=== PATIENT | male | born 1940 | race Caucasian/White ===

== ENCOUNTER 2018-08-22 15:37 | Inpatient (IN) | payer OTHER, BC ==
[~2018-08-22] VITALS: Ht 175.3 cm; Wt 68.5 kg
[~2018-08-22 15:37] MED LIST: AMARYL2 MG PO; ASPIR 8181 MG PO; FISH OIL 1,001000 M2 PO; LOPRESSOR100 M1 PO; METFORMIN HCL500 MG PO; METOPROLOL SUC100 MG PO; STOOL SOFTENER100 M1 PO; VITAMINC500 PO
[2018-08-22 15:42] VITALS: BP 161/54
[2018-08-22 16:22] LABS: ABSOLUTE NEUTROPHILS 4.1 thou/uL (1.4-8.2); BASOPHILS 1.1 % (0.0-2.0); EOSINOPHILS 5.5 % (0.0-3.0); HEMATOCRIT 39.7 % (42.0-52.0); LYMPHOCYTES 35.1 % (24.0-44.0); MCH 29.8 pg (26.0-34.0); MCHC 35.2 g/dL (28.0-37.0); MCV 84.6 fL (80.0-100.0); MONOCYTES 7.6 % (1.0-8.0); PLATELET COUNT 219 thou/uL (150-400); POLYS 50.7 % (36.0-66.0); RDW 13.6 % (10.5-14.5)
[2018-08-22 16:32] LABS: ANION GAP 11 mmol/L (7-16); BUN 16 mg/dL (7-18); CALCIUM 9.5 mg/dL (8.5-10.1); CHLORIDE 100 mmol/L (98-107); CO2 25 mmol/L (21-32); CREATININE 1.1 mg/dL (0.7-1.3); GLUCOSE 114 mg/dL (74-106); POTASSIUM 4.1 mmol/L (3.5-5.1); SODIUM 136 mmol/L (136-145)
[2018-08-22 16:36] LABS: APTT 27.3 Seconds (24.5-32.8); PROTIME 10.9 Seconds (9.3-11.4)
[2018-08-22 16:40] LABS: MAGNESIUM 1.7 mg/dL (1.8-2.4); SGOT 14 U/L (15-37); SGPT 23 U/L (30-65); TOTAL PROTEIN 7.6 g/dL (6.4-8.2); TROPONIN-I <0.06 ng/mL (<0.06)
[2018-08-22 16:57] LABS: URINE BILIRUBIN NEGATIVE (Negative); URINE BLOOD NEGATIVE (Negative); URINE CLARITY CLEAR; URINE COLOR YELLOW; URINE GLUCOSE-RANDOM* NEGATIVE (Negative); URINE KETONES NEGATIVE (Negative); URINE LEUKOCYTES-REFLEX NEGATIVE (Negative); URINE NITRITE-REFLEX NEGATIVE (Negative); URINE PROTEIN (DIPSTICK) NEGATIVE (Negative); URINE UROBILINOGEN 0.2 E.U./dl (0.2-1.0)
[2018-08-22 17:13] LABS: AMP/METHAMP Negative (Negative); BARBITURATES Negative (Negative); BENZODIAZEPINES Negative (Negative); COCAINE Negative (Negative); METHADONE Negative (Negative); OPIATES Negative (Negative); PCP Negative (Negative)
[2018-08-22] MEDS ORDERED: FISH OIL 1,001000 M2 PO (17:25)
[2018-08-22] MEDS ORDERED: NIZORAL120 ML TOP (17:28)
[2018-08-22] MEDS ORDERED: OMEPRAZOLE40 MG PO (17:29)
[2018-08-22 19:00] VITALS: BP 143/58
[2018-08-22 19:31] VITALS: BP 147/72
--- NOTE | 2018-08-23 03:10 | NUR ---
ADMISSION AT SHIFT CHANGE FROM THE ER. PT ADMISSION COMPLETED. DURING ASSESSMENT DID NOT NOTICE ANY SIGNS OF STROKE THAT PT PREVIOUSLY HAD WITH SLURRED SPEECH. PT HAS BEEN RESTING IN THE BED ALL SHIFT. POC WITH IVF STARTED PER EMAR. PT IS SCHEDULED FOR MRA TOMORROW AND CONSULTS HAVE BEEN COMPLETED. VSS AND NO COMPLIANTS OF PAIN OR N/V. ONLY WORRY PT VOICED WAS GETTING HIS HOME MEDICATIONS RESTARTED ON 08/23. HOURLY ROUNDING.
[2018-08-23 04:58] VITALS: BP 160/79
[2018-08-23 07:42] VITALS: BP 152/68
--- NOTE | 2018-08-23 09:32 | H ---
[facility] [address] [place] [address] HISTORY AND PHYSICAL Name: WICHO COATS Maggi Room #: 351-P [facility] IN M.R.#: [id number] Admission: 08/22/18 ������������������ Attend Phys: Amirah Cortes Discharge: ������������������ Date of : 36 Report #: [id number] THIS REPORT FOR: //name// CC: Dominick Price DATE OF SERVICE: 08/22/2018 CHIEF COMPLAINT: Weakness. HISTORY OF PRESENT ILLNESS: The patient is an 78-year-old gentleman admitted to the Emergency Room with a possible cerebrovascular event. He was in his usual state of health after what sounds to be in vestibular rehab. This morning when he took a nap and woke up around noon, his said at that time that he was having difficulty speaking. She thought maybe his words were slurred, but more importantly, he was having difficulty expressing his words or expressing his needs. She said he "just could not get the words out." She brought him to the office to be seen by Dr. Price, but he was too weak to get out of the car. She said he was slightly confused. He was brought to the Emergency Room and evaluated and now admitted. He does have a history of some kind of precancerous esophageal mass that [facility] has been managing through GI. He apparently has had multiple EGDs and about 10 days ago underwent a radiofrequency ablation procedure. She said he seemed to tolerate that without incident. PAST MEDICAL HISTORY: Diabetes type 2, hypertension, esophageal mass. There is a history of transient amnesia several years ago, details are unclear. PAST SURGICAL HISTORY: None. FAMILY HISTORY: Unknown. SOCIAL HISTORY: , lives with his . Denies chronic alcohol or tobacco use. ALLERGIES: None. MEDICATIONS: Metformin, Amaryl, vitamin C, aspirin, Colace, metoprolol 100 mg, omeprazole. REVIEW OF SYSTEMS: Denies headache, chest pain, shortness of breath, abdominal pain, nausea, vomiting, diarrhea, constipation, dysuria, syncope. OBJECTIVE: VITAL SIGNS: Temperature 36.7, pulse 57, respirations 18, blood pressure 147/72, O2 sat 94% on room air. [facility] [address] [place] [address] HISTORY AND PHYSICAL Name: WICHO COATS Room #: 351-P [facility] IN .R.#: [id number] Admission: 08/22/18 ������������������ Attend Phys: Amirah Cortes Discharge: ������������������ Date of : 38 Report #: [id number] GENERAL: He is awake and alert, in no distress. HEAD AND NECK: Unremarkable. NEUROLOGIC: Cranial nerves intact and foot are intact and he has fluent speech. LUNGS: Clear. HEART: Regular. ABDOMEN: Soft, normoactive bowel sounds. No rebound or guarding. EXTREMITIES: No cyanosis, clubbing or edema. NEUROLOGIC: Global strength 4/5 and equal bilaterally throughout. Urinalysis: UDS was negative. LABORATORY DATA: CBC normal. Chemistry normal. Magnesium was a little low. Troponin negative. CT of the head negative. Chest x-ray negative. ASSESSMENT: 1. Transient ischemic attack. 2. Hypertension. 3. History of esophageal precancerous mass. PLAN: MRI with MRA has been consulted and the Neurology team will hold some of his home medications for now with slow IV fluids overnight. ��������������������������������������������� <ELECTRONICALLY SIGNED> ���������������������������������������� By: Donell Hobbs MD ��������������������������������������������� 08/23/18931 30 52 Donell Hobbs MD /nt
--- NOTE | 2018-08-23 09:47 | 2DMMODE ---
[facility] [place] [address] 2 D/M-MODE ECHOCARDIOGRAM Name: WICHO COATS Room #: 351-P [facility] IN ..#: [id number] ������������� Admission: 08/22/18 ������������� Attend Phys: Dominick Baum Discharge: ��� ������������� ��� Date of : 36 Date of Service: 08/23/18 0946 �� Report #: [id number] �������� ��������������������������������������������[id number] THIS REPORT FOR: //name// APPROVED REPORT Study performed: 08/23/2018 08:08:10 EXAM: Comprehensive 2D, Doppler, and color-flow Echocardiogram Patient Location: Echo lab Room #: [facility] Status: routine BSA: 1.83 HR: 55 bpm BP: 160/79 mmHg Rhythm: NSR Other Information Study Quality: Fair Technically limited study due to poor echo windows.. Indications TIA, HTN. Echo Enhancing Agent Indication: Rule out Shunt Agent(s) / Amount(s) Used: Agitated Saline 6 cc 2D Dimensions RVDd: 35.54 mm IVSd: 10.28 (7-11mm) LVOT Diam: 20.47 (18-24mm) LVDd: 45.40 mm PWd: 9.64 (7-11mm) LVDs: 33.97 (25-40mm) Aortic Root: 36.18 mm Volumes Left Atrial Volume (Systole) Single Plane 4CH: 33.98 mL Single Plane 2CH: 42.74 mL LA ESV Index: 24.00 mL/m2 Aortic Valve AoV [place].: 0.93 m/s AO Peak Gr.: 3.46 mmHg LVOT Max P.54 mmHg AO Mean Gr.: 2.48 mmHg [facility] [address] [place] [address] 2 D/M-MODE ECHOCARDIOGRAM Name: WICHO COATS Room #: 351-P [facility] IN ..#: [id number] ������������� Admission: 08/22/18 ������������� Attend Phys: Dominick Baum Discharge: ��� ������������� ��� Date of : 36 Date of Service: 08/23/18 0946 �� Report #: [id number] �������� ��������������������������������������������[id number] AO V2 Mean: 0.78 m/s LVOT Max V: 0.80 m/s AO V2 VTI: 153.40 cm CARLITO Vmax: 2.82 cm2 Mitral Valve E/A Ratio: 0.8 MV Decel. Time: 365.88 ms MV E Max Lake.: 0.54 m/s MV A Lake.: 0.65 m/s MV PHT: 106.10 ms IVRT: 73.82 ms Tricuspid Valve TR [place].: 2.64 m/s RAP Estimate: 5.00 mmHg TR Peak Gr.: 27.85 mmHg PA Pressure: 33.00 mmHg Left Ventricle The left ventricle is normal size. There is normal LV segmental wall motion. There is normal left ventricular wall thickness. Left ventricular systolic function is normal. LVEF is 55%. Mild diastolic dysfunction is present (impaired relaxation pattern). Right Ventricle The right ventricle is normal size. The right ventricular systolic function is normal. Atria The left atrium size is normal. No shunting noted with contrast bubble injection. The right atrium size is normal. Aortic Valve The aortic valve is not well visualized. Trace aortic regurgitation. There is no aortic valvular stenosis. Mitral Valve The mitral valve is normal in structure. Mild mitral regurgitation. Tricuspid Valve The tricuspid valve is normal in structure. Mild tricuspid regurgitation. Pulmonic Valve Pulmonic valve is not well visualized. [facility] [place] [address] 2 D/M-MODE ECHOCARDIOGRAM Name: COATSWICHO Maggi Room #: 351-P [facility] IN .R.#: [id number] ������������� Admission: 08/22/18 ������������� Attend Phys: Dominick Baum Discharge: ��� ������������� ��� Date of : 36 Date of Service: 08/23/18 0946 �� Report #: [id number] �������� ��������������������������������������������[id number] Great Vessels The aortic root is normal in size. Ascending aorta is not well visualized. IVC is normal in size and collapses >50% with inspiration. Pericardium There is no pericardial effusion. <Conclusion> The left ventricle is normal size. LVEF is 55%. The aortic valve is not well visualized. Trace aortic regurgitation. The mitral valve is normal in structure. Mild mitral regurgitation. The tricuspid valve is normal in structure. Mild tricuspid regurgitation. Pulmonic valve is not well visualized. The aortic root is normal in size. Ascending aorta is not well visualized. There is no pericardial effusion. No shunting noted with contrast bubble injection. ��������������������������������������������� <ELECTRONICALLY SIGNED> ���������������������������������������� By: Grant Scherer MD ��������������������������������������������� 08/23/18945 5 5 Grant Scherer MD /INF
[2018-08-23 11:17] VITALS: BP 155/73
--- NOTE | 2018-08-23 12:35 | NUR ---
Assumed care of patient at 0700. Vitals have been stable. Patient alert and oriented x4. Speech appears clear, patient has some mild weakness, but is overall weak. Up with SBA and gait belt. Fall precautions in place. Working with therapies today. Completed MRI / MRA and Echo today. MRI results appear negative; no acute abnormality. Patient still to be seen by neuro to be evaluated. at bedside. Patient denies pain, SOB, nausea. No other complaints at this time. Progressing towards POC. Will continue to monitor.
[2018-08-23 16:06] VITALS: BP 130/65
--- NOTE | 2018-08-23 16:40 | EKG ---
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: ALEX : 1940 Requested By: Christopher Velazquez Order Number: [id number] MD: Ramón Coffman Measurements Intervals [place] Rate: 65 P: 47 ID: [id number] QRS: 44 QRSD: 92 T: 65 QT: 387 QTc: 403 Interpretive Statements Sinus rhythm No significant abnormality Compared to ECG 07/09/2015 19:08:27 No significant changes Electronically Signed On 08-23-2018 16:40:12 CDT by Ramón Coffman [email or web address] ��������������������������������������������� <ELECTRONICALLY SIGNED> ���������������������������������������� By: Ramón Coffman MD, [facility] ��������������������������������������������� 08/23/18 1640 1611 1611 Ramón Coffman MD, FACC /EPI
[2018-08-23 19:15] VITALS: BP 145/68
--- NOTE | 2018-08-24 04:15 | NUR ---
ASSUMED CARE OF PATIENT AT 1845. PATIENT IS ALERT AND ORIENTED X4 BUT FORGETFUL AT TIMES, WITH GLOBAL AMNESIA. PATIENT IS STAND BY ASSIST WITH A GAIT BELT, BUT DID NOT GET UP ON THIS SHIFT, USED URINAL. PATIENT IS A HIGH FALL RISK DUE TO ADMITTING DIAGNOSIS OF POSSIBLE TIA AND WEAKNESS. PATIENT REQUIRED SOME FOLLOW UP TEACHING ON NEW MEDICATION OF LEVODOPA/CARBIDOPA. PATIENT HAD NO REPORTS OF PAIN, NAUSEA, OR VOMITING ON THIS SHIFT. HE IS CALM AND COOPERATIVE WITH CARE.
[2018-08-24 04:45] VITALS: BP 148/70
[2018-08-24 07:35] VITALS: BP 130/67
--- NOTE | 2018-08-24 08:26 | NUR ---
ASSESSMENT: CM REVIEWED CHART AND MET WITH PATIENT AND HIS AT THE BESIDE. PT WAS ADMITTED DUE TO POSSIBLE TIA. PT REPORTS LIVING IN A HOUSE WITH HIS . IF PATIENT ENTERS THE HOME THROUGH THE FRONT DOOR HE DOES NOT HAVE ANY STEPS. PT NORMALLY AMBULATES INDEPENDENTLY BUT REPORTS THEY DO HAVE A CANE AT HOME. PT DENIES HAVING A GRAB BAR OR SHOWER CHAIR AND HAS BEEN INDEPENDENT WITH ADLS. CM DISCUSSED ROLE. PT DENIES HAVING HH IN THE PAST OR BEING TO SNF. CM DISCUSSED PT/OT EVALS AND RECOMMENDATION FOR HH VS OUTPATIENT THERAPY. PT STATING HE PREDERS TO DO OUTPATIENT THERAPY STATING HE DOES NOT WANT HH. CM WILL CONTINUE TO FOLLOW TO ASSIST NEEDED.
--- NOTE | 2018-08-24 11:33 | NUR ---
Assumed care of patient at 0700. Vitals have been stable. Patient is alert and oriented x3-4, forgetful at times. NIH and neuro assessments as charted. Patient with no complaints of pain, SOB, nausea. States feels pretty good this morning. Up with SBA, GB. Fall precautions in place. at bedside. Dr. Johnson currently at bedside. Awaiting rounds from Dr. Hobbs to see if stable enough to discharge home. Progressing towards POC. Will continue to monitor.
[2018-08-24] MEDS ORDERED: CARBIDOPA-LEVO1 EA11 PO (12:16)
[2018-08-24] MEDS ORDERED: ATORVASTATIN CA10 MG PO (12:16)
[2018-08-24 12:32] VITALS: BP 130/67
--- NOTE | 2018-08-24 13:21 | NUR ---
ON-GOING ASSESSMENT: CM REVIEWED CHART AND MET WITH PATIENT AND HIS AT TH BEDSIDE. PT IS TO LEAVE TODAY AND HAS ORDERS FOR OUTPATIENT THERAPY. CM SPOKE WITH PT AND AND THEY PREFER TO COME TO [facility]. CM CONTACTED [facility] [phone] TO GIVE THEM A HEARDS UP AND FAXED THE SCRIPT AND A FACE SHEET. THEY HAVE OPENINGS TOMORROW BUT STATES THEY CANNOT MAKE TOMORROW SO CM PROVIDED WITH THE CONTACT NUMBER FOR THEM TO SCHEDULE. CASE CLOSED.
--- NOTE | 2018-08-25 10:16 | D ---
[facility] [address] [place] [address] DISCHARGE SUMMARY Name: WICHO COATS Room #: 351-P [facility] IN M.R.#: [id number] Admission: 08/22/18 ������������������ Attend Phys: Amirah Cortes Discharge: 08/24/18 ������������������ Date of : 38 Report #: [id number] THIS REPORT FOR: //name// CC: Dominick Price DATE OF SERVICE: 08/24/2018 FINAL DIAGNOSES: 1. Transient ischemic attack. 2. Parkinsonism. 3. Hypertension. HOSPITAL COURSE: The patient was admitted with stroke-like symptoms. CT and MRI were negative. His neurologic symptoms resolved completely. He worked with physical therapy and had no other medical complications. Dr. Johnson saw him and considered a diagnosis of early parkinsonism based on some symptoms and features that he assessed. Low dose Sinemet was started t.i.d. PHYSICAL EXAMINATION: GENERAL: On the day of discharge, he was awake and alert. VITAL SIGNS: Stable. LUNGS: Clear. HEART: Regular. ABDOMEN: Soft, normoactive bowel sounds. EXTREMITIES: Showed no edema. DISPOSITION: He is discharged to home with diet and activity as tolerated. He will have outpatient PT. Follow up with Dr. Price in 2 weeks. Resume all home medications plus aspirin 81 mg, Lipitor 10 mg, Sinemet 10 mg t.i.d. ��������������������������������������������� <ELECTRONICALLY SIGNED> ���������������������������������������� By: Donell Hobbs MD ��������������������������������������������� 08/25/18 1016 1252 2047 MD no Trevizo
== END 2018-08-24 13:34 | disposition home or self-care (01) | DRG 69 ==
LOC: ER 15:37 → EROBS 16:57 → 3W 16:57 → ENTRNSPT 08-24 13:21 → EDTRNSPTSTS 08-24 13:24 → 3W 08-24 13:34
PROVIDERS: Emergency Medicine; ADMIT Internal Medicine
DX: G45.9 Transient cerebral ischemic attack, unspecified (principal); E11.9 Type 2 diabetes mellitus without complications; I10 Essential (primary) hypertension; G20 Parkinson's disease; Z79.899 Other long term (current) drug therapy; Z79.84 Long term (current) use of oral hypoglycemic drugs; Z79.82 Long term (current) use of aspirin
CPT/HCPCS: 10879

== ENCOUNTER 2019-06-01 17:06 | Inpatient (IN) | payer OTHER, BC ==
[~2019-06-01] VITALS: Ht 172.7 cm; Wt 70.8 kg
[2019-06-01] VITALS (16 sets, daily range): BP systolic 154–188; BP diastolic 63–95
--- NOTE | ~2019-06-01 | HC ---
[facility] [address] [place] [address] CONSULTATION Name: PAULYWICHO Maggi Room #: 244-P [facility] IN M.R.#: [id number] Admission: 06/01/19 Attend Phys: Amirah Cortes Discharge: Date of : 38 Report #: [id number] THIS REPORT FOR: //name// CC: Dominick Price HISTORY OF PRESENT ILLNESS: The patient is an 79-year-old white male who was admitted with speech difficulties, confusion, noted to occur approximately one hour prior to admission. He was noted to have expressive aphasia with right homonymous hemianopsia without focal weakness. He was also noted to have moderate apraxia. CT of the head was negative. He was given TPA. He has been on bed rest. MRI is pending. He is in the intensive care unit with Neurology involved. We are seeing him in rehabilitation medicine consultation. PAST MEDICAL HISTORY: Includes hypertension, diabetes mellitus type 2. He has a history of a prior esophageal mass. The noted that he has had some prior problems with decreased functional mobility with some overall generalized weakness over the past several months. Apparently things are underway for him to get some outpatient therapy when he came in for this stroke workup. MEDICATIONS: Please see the full medication listing. SOCIAL HISTORY: Lives with . Single story house. No assistive device, although the notes that she would help him out of the chair and he also would tend to walk arm in arm with the . He did not utilize a gait aid, although she tried an old walker, but it sounds like he was not able or did not know how to use it. REVIEW OF SYSTEMS: No current complaints of chest pain, shortness of breath or abdominal discomfort. PHYSICAL EXAMINATION: GENERAL: An 79-year-old white male in no obvious distress. He was alert. He was seen in the intensive care unit. VITAL SIGNS: Temperature 97.9, pulse 57, respirations 17, blood pressure 142/64. NEUROLOGIC: There is a definite delay in his responses. He can follow basic 1-step commands. He knew the date of the month, but was unable to name the year. He knew what hospital he was at, was able to express basic sentence structure. Facies appeared symmetric. He might have decreased right visual field, although it was somewhat difficult to definitively say this. EXTREMITIES: He has functional range of motion of both upper and lower extremities. Strength is probably grade 4-/5. DTRs are trace to 1. He has been unable to get up for functional mobility as he has had the TPA and there is not to be any therapy for 24 hours afterwards. ASSESSMENT: The patient is an 79-year-old male with the following problem list: 1. Stroke workup with CVA/TIA status post TPA. [address] [address] CONSULTATION Name: WICHO COATS Room #: 244-P [facility] IN M.R.#: [id number] Admission: 06/01/19 Attend Phys: Amirah Cortes Discharge: Date of : 38 Report #: [id number] 2. Expressive aphasia with some right hemianopsia without obvious weakness. 3. Moderate apraxia. 4. Premorbid functional mobility deficits. 5. Diabetes mellitus type 2. 6. Hypertension. 7. History of an esophageal mass. PLAN: Therapy evaluations will be underway within the protocol post-TPA. We will be glad to follow along with you regarding his rehab therapy needs. By: 1248 0222 Donell Harmon MD /JULIANNA
[~2019-06-01 17:06] MED LIST changes: +ATORVASTATIN CA10 MG PO; +CARBIDOPA-LEVO1 EA11 PO; +NIZORAL120 ML TOP; +OMEPRAZOLE40 MG PO
--- NOTE | 2019-06-01 17:13 | NUR ---
DR. ENRIQUEZ EXAMINING PT. AT THIS TIME
[2019-06-01 17:32] LABS: HEMATOCRIT 40.9 % (42.0-52.0); HEMOGLOBIN 13.8 gm/dL (14.0-18.0); MCH 29.7 pg (26.0-34.0); MCHC 33.8 g/dL (28.0-37.0); MCV 87.8 fL (80.0-100.0); PLATELET COUNT 196 thou/uL (150-400); RBC 4.66 mil/uL (4.50-6.00); RDW 13.6 % (10.5-14.5); WBC 8.2 thou/uL (4.0-11.0)
[2019-06-01 17:39] LABS: ANION GAP 7 mmol/L (7-16); BUN 15 mg/dL (7-18); CALCIUM 9.8 mg/dL (8.5-10.1); CHLORIDE 100 mmol/L (98-107); CO2 32 mmol/L (21-32); CREATININE 1.1 mg/dL (0.7-1.3); GLUCOSE 163 mg/dL (74-106); POTASSIUM 4.3 mmol/L (3.5-5.1); SODIUM 139 mmol/L (136-145)
[2019-06-01 17:46] LABS: PROTIME 10.6 Seconds (9.3-11.4)
[2019-06-01 17:49] LABS: ABSOLUTE NEUTROPHILS 5.3 thou/uL (1.4-8.2); ALBUMIN 3.9 g/dL (3.4-5.0); SGOT 11 U/L (15-37); SGPT 24 U/L (30-65); TOTAL BILIRUBIN 0.8 mg/dL (<0.1-1.0); TROPONIN-I <0.06 ng/mL (<0.06)
[2019-06-01 17:50] LABS: PLATELET ESTIMATE NORMAL
[2019-06-02] VITALS (49 sets, daily range): BP systolic 115–178; BP diastolic 37–121
--- NOTE | 2019-06-02 05:15 | NUR ---
Patient arrived to the unit from the ED at 1999. Patient is AAOx3 and on room air. Stroke protocol implemented. Patient has a NIHSS of 1. Patient noted to have nonblanchable redness on the sacral/coccyx area. No other wounds were noted. Dr. Sam Price notified of patient's arrival to the unit. Received some orders but MD stated that he will be fine until he sees him in the morning. Patient remains with a NIHSS of 1. Patient started on Cardene for BP management. No acute events occurred during this shift. Patient is progressing towards goal.
[2019-06-02 06:47] LABS: ALBUMIN 3.8 g/dL (3.4-5.0); ANION GAP 7 mmol/L (7-16); BUN 12 mg/dL (7-18); CALCIUM 9.1 mg/dL (8.5-10.1); CHLORIDE 102 mmol/L (98-107); CHOLESTEROL 226 mg/dL (<200); CO2 31 mmol/L (21-32); CREATININE 0.9 mg/dL (0.7-1.3); GLUCOSE 156 mg/dL (74-106); HDL CHOLESTEROL 30 mg/dL (>40); LDL CHOLESTEROL 148 mg/dL (<100); SGOT 12 U/L (15-37); SGPT 22 U/L (30-65); SODIUM 140 mmol/L (136-145); TC:HDL 7.5 Ratio (Not establshd); TOTAL BILIRUBIN 1.3 mg/dL (<0.1-1.0); TOTAL PROTEIN 7.8 g/dL (6.4-8.2); TRIGLYCERIDE 240 mg/dL (<150); VLDL 48 mg/dL (<40)
--- NOTE | 2019-06-02 09:54 | NUR ---
SEE NIHSS FOR DETAILS. SEE ASSESSMENT FOR DETAILS. DR. FORD PRESENT THIS AM, UPDATED ON NIHSS RESULTS. PRESENT. BOTH PT AND UPDATED ON ALL CARES.
--- NOTE | 2019-06-02 13:46 | EKG ---
[address] [place] [address] ELECTROCARDIOGRAM REPORT Name: WICHO COATS Room #: 244-P ADM IN M.R.#: [id number] Admission: 06/01/19 Attend Phys: Amirah Cortes Discharge: Date of : 38 Report #: [id number] THIS REPORT FOR: //name// [facility] ED Test Date: 2019-06-01 Test Time: 18:08:55 Pat Name: WICHO COATS Department: Room: Gender: Hris Coordinator: [facility] 1940 Requested By: Jasper Carranza Order Number: [id number] MD: Rubén Nava Measurements Intervals [place] Rate: 63 P: 68 VA: 58 QRS: 53 QRSD: 82 T: 73 QT: 409 QTc: 419 Interpretive Statements Sinus rhythm Short VA interval Compared to ECG 08/22/2018 16:11:47 Short VA interval now present T-wave abnormality now present Electronically Signed On 06-02-2019 13:45:41 [employer] by Rubén Nava [email or web address] <ELECTRONICALLY SIGNED> By: Rubén Nava MD 06/02/19 1345 07 Rubén Nava MD /SHAHBAZ
--- NOTE | 2019-06-02 14:22 | 2DMMODE ---
[facility] [place] [address] 2 D/M-MODE ECHOCARDIOGRAM Name: WICHO COATS Room #: 244-P [facility] IN [facility]#: [id number] Admission: 06/01/19 Attend Phys: Dominick Baum Discharge: Date of : 38 Report #: [id number] THIS REPORT FOR: //name// APPROVED REPORT Study performed: 06/02/2019 13:21:39 EXAM: Comprehensive 2D, Doppler, and color-flow Echocardiogram Patient Location: ICU Room #: [facility] Status: routine BSA: 1.80 HR: 57 bpm BP: 142/58 mmHg Rhythm: Bradycardia Other Information Study Quality: Technically Limited Indications CVA/TIA Diabetes Hypertension/HDD Echo Enhancing Agent Indication: Rule out Shunt Agent(s) / Amount(s) Used: Agitated Saline 7 cc 2D Dimensions IVC: 14.00 mm Volumes Left Atrial Volume (Systole) Single Plane 4CH: 52.06 mL Single Plane 2CH: 37.50 mL LA ESV Index: 28.00 mL/m2 Aortic Valve AoV [place].: 0.99 m/s AO Peak Gr.: 3.91 mmHg LVOT Max P.26 mmHg LVOT Max V: 0.75 m/s Mitral Valve E/A Ratio: 0.7 MV Decel. Time: 298.16 ms MV E Max Lake.: 0.65 m/s [facility] [address] [place] [place] [address] 2 D/M-MODE ECHOCARDIOGRAM Name: WICHO COATS Room #: 244-P [facility] IN [facility].#: [id number] Admission: 06/01/19 Attend Phys: Dominick Baum Discharge: Date of : 38 Report #: [id number] MV A Lake.: 0.88 m/s MV PHT: 86.47 ms IVRT: 119.95 ms Pulmonary Vein P Vein S: 0.46 m/s P Vein A: 0.25 m/s P Vein D: 0.27 m/s P Vein A Dur.: 87.7 msec P Vein S/D Ratio: 1.70 Left Ventricle The left ventricle is normal size. There is normal LV segmental wall motion. There is normal left ventricular wall thickness. The left ventricular systolic function is normal. The left ventricular ejection fraction is within the normal range. LVEF is 55-60%. Grade I - abnormal relaxation pattern. Right Ventricle The right ventricle is normal size. The right ventricular systolic function is normal. Atria The left atrium size is normal. Interatrial septum is intact without evidence of ASD or PFO. The right atrium size is normal. Aortic Valve The aortic valve is normal in structure. No aortic regurgitation is present. There is no aortic valvular stenosis. Mitral Valve The mitral valve is normal in structure. Trace mitral regurgitation. No evidence of mitral valve stenosis. Tricuspid Valve The tricuspid valve is normal in structure. There is no tricuspid valve regurgitation noted. Pulmonic Valve The pulmonary valve is normal in structure. There is no pulmonic valvular regurgitation. Great Vessels The aortic root is normal in size. IVC is normal in size and collapses >50% with inspiration. Pericardium No pericardial effusion. [facility] [address] [place] [address] 2 D/M-MODE ECHOCARDIOGRAM Name: COATSWICHO Maggi Room #: 244-P [facility] IN [facility].#: [id number] Admission: 06/01/19 Attend Phys: Dominick Baum Discharge: Date of : 38 Report #: [id number] <Conclusion> The left ventricle is normal size. LVEF is 55-60%. Interatrial septum is intact without evidence of ASD or PFO. The aortic valve is normal in structure. The mitral valve is normal in structure. Trace mitral regurgitation. The tricuspid valve is normal in structure. The pulmonary valve is normal in structure. No pericardial effusion. <ELECTRONICALLY SIGNED> By: Grant Scherer MD 06/02/19 142 20 142 Grant Scherer MD /INF
--- NOTE | 2019-06-02 16:01 | NUR ---
transferred to mri per wheelchair with credit controller for mri of head without contrast. accompanied by mri staff and rn.
[2019-06-03] VITALS (39 sets, daily range): BP systolic 125–173; BP diastolic 53–82
[2019-06-03 00:06] LABS: GLYCOHEMOGLOBIN (HGB A1C) 6.8 % (4.8-5.6)
--- NOTE | 2019-06-03 03:30 | NUR ---
NOTED PT TO BE VERY DROUSY AND MORE APHASIC. UNABLE TO ANSWER QUESTIONS CORRECTLY. DR OFRD NOTIFEID AND LEFT ORDERS FOR STAT CT OF HEAD
--- NOTE | 2019-06-03 04:00 | NUR ---
0400 PT PERKED UP ON THE WAY TO CT AND NOW IS ORIENTED. NO DRIFT NO FACIAL DROOP. HENDRICKSON TO COMMAND. WILL CONT TO MONITOR.
--- NOTE | 2019-06-03 05:15 | NUR ---
DR OFRD HERE TO SEE. CT OF HEAD NEGATIVE STAT DOSE OF PLAVIX [address] LILIANA FORD HERE TO SEE PT. AT BEDSIDE. CT OF HEAD NEGATIVE VOIDED 200 CC LAILA URINE. NIH OF 2 WILL CONT TO MONITOR
--- NOTE | 2019-06-03 08:10 | H ---
[facility] [address] [place] [address] HISTORY AND PHYSICAL Name: WICHO COATS Room #: 244-P [facility] IN ..#: [id number] Admission: 06/01/19 Attend Phys: Amirah Cortes Discharge: Date of : 36 Report #: [id number] THIS REPORT FOR: //name// CC: Dominick Price DATE OF SERVICE: 06/01/2019 CHIEF COMPLAINT: Trouble speaking. HISTORY OF PRESENT ILLNESS: The patient is an 79-year-old gentleman who was admitted through the Emergency Room with difficulty speaking. His reports that she noted that he was confused and was having difficulty expressing his words. She said his speech was not totally clear and he was not able to name things properly. She said this was a sudden change. His blood sugar was stable at home. She brought him to the Emergency Room where he was treated with TPA for clinical diagnosis of a stroke and/or TIA. MEDICAL HISTORY: Diabetes type 2, hypertension, remote history of esophageal cancer, dyslipidemia. PAST SURGICAL HISTORY: Unknown. FAMILY HISTORY: Noncontributory. SOCIAL HISTORY: He is , lives with his at home. No chronic alcohol or tobacco use, but some smoking in the past. ALLERGIES: None. MEDICATIONS: Lipitor, Sinemet, Glucophage, Amaryl, aspirin, metoprolol, omeprazole. REVIEW OF SYSTEMS: He denies headache, chest pain, shortness of breath, abdominal pain, nausea, vomiting, diarrhea, constipation, dysuria, syncope. OBJECTIVE: VITAL SIGNS: Temperature 36.7, pulse 56, respirations 17, blood pressure 143/66, O2 sat 93-98% on room air. GENERAL: He is awake and alert, in no distress. HEAD AND NECK: Unremarkable. He has facial symmetry. LUNGS: Clear. HEART: Regular. ABDOMEN: Soft, normoactive bowel sounds. EXTREMITIES: No edema. NEUROLOGIC: His words were slow, but he was able to communicate clearly. He recognizes my name from the office. He recognized his and conversed with [facility] [place] [address] HISTORY AND PHYSICAL Name: WICHO COATS Maggi Room #: [address] [place] [address] [place] .R.#: [id number] Admission: 06/01/19 Attend Phys: Amirah Cortes Discharge: Date of : 38 Report #: [id number] her clearly. She felt that his symptoms were much improved. He moves all extremities, global strength about 3-4/5 throughout. LABORATORY DATA: Reviewed. Chemistry and CBC are fairly unremarkable. Lipids are noted to be elevated. Initial CT head through ER was unremarkable. ASSESSMENT: 1. Cerebrovascular accident. 2. Hypertension. 3. Diabetes type 2. 4. Acute aphasia. PLAN: Repeat an MRI today. Resume other home medications. Full therapies to be initiated along with the rehabilitation service. <ELECTRONICALLY SIGNED> By: Donell Hobbs MD 06/03/19 0810 1258 1335 Donell Hobbs MD /soren
--- NOTE | 2019-06-03 10:27 | NUR ---
Assumed care at 0700. PT was asleep in bed but woke up easily. PT appears slow in processing commands and is oriented to self only. At 0920 PT began having runs of SVT. PT was asymptomatic, BP is stable. PT was instructed to bear down and cough which helped decrease his heart rate. PT was noted to have runs of SVT every couple of minutes with each episode lasting longer than the previous. Dr. Hobbs was paged several times and nurse was able to reach him at 1017. Nurse notified of Anjel that a new EKG had been obtained and a BMP with mag was also ordered. He verbalized understanding and ordered to restart PT's home medication (Metoprolol succinate 100mg QD) with first dose ordered for now and to consult cardiology. Dr. Scherer's answering service was contacted to notify him of the consult. Nurse will continue to monitor.
[2019-06-03 12:01] LABS: CALCIUM 9.2 mg/dL (8.5-10.1); CREATININE 1.1 mg/dL (0.7-1.3); MAGNESIUM 1.5 mg/dL (1.8-2.4)
[2019-06-04] VITALS (20 sets, daily range): BP systolic 113–190; BP diastolic 47–83
--- NOTE | 2019-06-04 05:07 | NUR ---
With assessment,it is noted that when pt is asleep, his respirations are so shallow, that they are difficult for the monitor to read. The lead was adjusted, and a visual assessment does show (up to 5 second) periods of apnea. The reports that she has noticed that he does that home as well. O2 was placed when his sats dropped, and he is currently at 100 % on 2 L/m. His lungs are clear, no cough noted. SB on the monitor with rates dropping to 47 bpm, BP was reading high, but more likely due to cuff placement and movement, and is currently 134/59. Pt has good understanding of education, questions, etc but still has some trouble finding his words, when he is prompted, he agrees that was what he was trying to say. NIH scale is usually between 2-3, his physical assessment is WNL, with aphasia still posing the most difficult issue at this time. The bed is in the low/locked position, the call light is within reach and the bed alarm is set, as he forgets his limitations.
[2019-06-04 05:14] LABS: CALCIUM 9.3 mg/dL (8.5-10.1); CREATININE 0.9 mg/dL (0.7-1.3); POTASSIUM 3.8 mmol/L (3.5-5.1)
--- NOTE | 2019-06-04 10:04 | NUR ---
Assumed care at 0700. PT was alert and oriented to person and place this morning. PT was also able to communicate better understanding of what brought him into the hospital. NIH was noted to be 2 this morning for expressive aphasia and disorientation to time. PT is tolerating food and medication well. Metoprolol has not been given this morning due to bradycardia. Nurse will follow up with physician to get clarification of order. PT is currently sitting up in the recliner. is at bedside. Fall precautions are in place. Call light is within reach. Nurse will continue to monitor.
--- NOTE | 2019-06-04 17:45 | NUR ---
PT has shown improvements with his cognitive status. PT was able to correctly identify where he was and knew more about the events leading up to this hospitalization. His short term memory appears improved. PT's stated "he seems so much clearer today." PT ambulated to the recliner and to the toilet, tolerating activity well. Fall precautions were in place and gait belt was utilized. PT is currently eating dinner in his recliner and appears to be tolerating it well. Call light is within reach. Nurse will continue to monitor.
[2019-06-05 04:33] VITALS: BP 146/62
--- NOTE | 2019-06-05 06:44 | NUR ---
Pt has rested well through the night, his only complaint is the BP cuff, so the monitor was set to Q4H, VSS, he remains bradycardic, but rates maintained in the 50's to 70's. His speech/STM has improved, less word-finding noted, he HENDRICKSON's, transfers with standby assist at this time. He is progressing to POC and should be able to be transferred out of ICU today. The bed is in the low/locked position, the call light is within reach and the siderails are up x 4.
[2019-06-05 08:08] VITALS: BP 147/56
[2019-06-05 08:09] VITALS: BP 146/62
--- NOTE | 2019-06-05 08:56 | NUR ---
CM ASSESSMENT: CASE OPENED FOR DC PLANNING. CLINICAL INFO REVIEWED. PT ADMITS WITH STROKE SYMPTOMS AND RECEIVED TPA. LIVES WITH SPOUSE, INDEPENDENT WITH ADLS, HAS CANE AT HOME. THERAPY EVALS INDICATE REHAB NEEDED AND 5N FOLLOWING. WILL DISCUSS TIMELINE FOR MEDICAL READINESS TO TRANSITION TO REHAB.
[2019-06-05] MEDS ORDERED: CLOPIDOGREL75 MG PO (14:04)
[2019-06-05] MEDS ORDERED: LIPITOR40 MG PO (14:04)
[2019-06-05] MEDS ORDERED: METOPROLOL SUCC50 MG PO (14:05)
--- NOTE | 2019-06-05 14:49 | EKG ---
[place] [address] [facility] [place] [address] ELECTROCARDIOGRAM REPORT Name: WICHO COATS Room #: 244-P ADM IN M.R.#: [id number] Admission: 06/01/19 Attend Phys: Amirah Cortes Discharge: Date of : 38 Report #: [id number] THIS REPORT FOR: //name// [facility] Test Date: 2019-06-03 Test Time: 10:10:05 Pat Name: WICHO COATS Department: Room: 244 P Gender: M Trip Rider: MIGUELANGEL : 1940 Requested By: Donell Hobbs Order Number: [id number] MD: Rubén Nava Measurements Intervals [place] Rate: 83 P: 77 DC: 152 QRS: 41 QRSD: 79 T: 77 QT: 375 QTc: 441 Interpretive Statements Sinus rhythm Borderline low voltage, extremity leads Compared to ECG 06/01/2019 18:08:55 Short DC interval no longer present Electronically Signed On 06-05-2019 14:48:21 SHOW JUMPING INSTRUCTOR by Rubén Nava [email or web address] <ELECTRONICALLY SIGNED> By: Rubén Nava MD 06/05/19 1448 1010 1010 Rubén Nava MD /SHAHBAZ
--- NOTE | 2019-06-06 14:00 | D ---
[facility] [address] [place] [address] DISCHARGE SUMMARY Name: WICHO COATS Room #: 244-P [facility] IN ..#: [id number] Admission: 06/01/19 Attend Phys: Amirah Cortes Discharge: 06/05/19 Date of : 38 Report #: [id number] THIS REPORT FOR: //name// CC: Dominick Price DATE OF SERVICE: 06/01/2019 FINAL DIAGNOSES: 1. Transient ischemic attack. 2. Paroxysmal supraventricular tachycardia. 3. Hypertension. 4. Diabetes type 2. 5. Obstructive sleep apnea. HOSPITAL COURSE: The patient was admitted with speech difficulties. He was treated for TIA and received TPA through the Emergency Room. CT nor MRI showed acute stroke; however, his MRI did show some chronic ischemic areas consistent with prior stroke. He had another episode of aphasia during his stay, but followup CT was negative as well. He was hypoxic at night and consideration of clinical diagnosis of obstructive sleep apnea was made. His expressed reports that he has hypersomnia during the day and often snores at night. The plan will be an outpatient sleep study. He had an episode of self-limited PSVT during his stay. Historically, it sounds like this is a chronic diagnosis and his metoprolol was adjusted. Cardiology service saw him and placed a loop recorder for consideration of tachyarrhythmia that could be contributing to his vascular events. He was switched from aspirin to Plavix and his Lipitor was increased based on his lipids. PHYSICAL EXAMINATION: On the day of discharge: GENERAL: He was awake and alert. VITAL SIGNS: Stable vital signs. NEUROLOGIC: His speech was clear. LUNGS: Clear. HEART: Regular. ABDOMEN: Soft, normoactive bowel sounds. EXTREMITIES: No edema. DISPOSITION: He is being transferred to inpatient rehabilitation. He will have oxygen at night. Diabetic diet, activity as tolerated. PT, OT, ST under the care of Dr. Harmon and I will follow his stay there. I prepared his transfer orders and medication list electronically. <ELECTRONICALLY SIGNED> By: Donell Hobbs MD 06/06/19 1400 1409 1429 Donell Hobbs MD /nt
--- NOTE | 2019-06-06 16:35 | LINQ ---
[facility] [address] [place] [address] [employer] PROCEDURE REPORT Name: WICHO COATS Room #: 244-P [facility] [id number] Admission: 06/01/19 Attend Phys: Dominick Baum Discharge: 06/05/19 Date of : 38 Report #: [id number] THIS REPORT FOR: //name// APPROVED REPORT Study performed: 06/05/2019 15:44:29 Patient Status: In-Patient Room #: Event Personnel: Grant Scherer MD Exam: loop recorder insertion Indications: cryptic stroke The patient is a 79 year-old male with a history of 2 episodes of cryptic strokes.. Implanted Devices: [employer]: CONFIRM Rx; Reference #: [id number]; SN: [id number]; Use before: 2020-10-06 Procedure The patient underwent informed consent. We discussed the details of the procedure including the risks, which include, but not limited to bleeding, infection, vascular damage, cardiac perforation, and pneumothorax. Abdomen functional was obtained the patient was prepped and draped in usual sterile manner. The left chest region was then covered with a sterile drape. Local lidocaine was then utilized to instill any utilizing 11 blade a small incision was made. Using both sharp and blunt dissection a small pocket was developed and the device was introduced without complications. The subcutaneous tissue was then closed with 2 simple interrupted sutures and the skin was Dermabond sealed. Steri-Strips 4 x 4 OpSite were then utilized. Patient tolerate her procedure well. Following implantation and completion of the procedure the device was interrogated by the [facility] who was concerned about a battery issue. Determinations that it may been secondary to the device being cold was brought forth and contact with technical services at [facility] ensued. After given again discussions with the technical publications manager it was deemed that device was faulty and needed explantation. The patient was then prepped and draped on the following day in rep and hold. Local anesthetic was instilled and using a 11 blade the incision was reopened. Antibiotic solution was utilized. The device was explanted and a new device with the above 0 numbers were positioned. The saphenous tissue was closed with 2 simple interrupted sutures and the skin was closed with a running subcuticular and [address] [address] [employer] PROCEDURE REPORT Name: PAULYWICHO Maggi Room #: 244-P [facility] [id number] Admission: 06/01/19 Attend Phys: Dominick Baum Discharge: 06/05/19 Date of : 38 Report #: [id number] subsequent Dermabond. Steri-Strips 4 x 4 OpSite were utilized no complications patient tolerated procedure well Conclusion 1. Successful implantation of a [employer] implantable loop recorder Recommendations 1. Routine post implantation protocol <ELECTRONICALLY SIGNED> By: Grant Scherer MD 06/06/19 1634 1634 1634 Grant Scherer MD /INF
== END 2019-06-05 17:32 | disposition short-term general hospital (02) | DRG 41 ==
LOC: ER 17:06 → ICU 19:52 → ER 19:52 → ICU 20:03
PROVIDERS: Emergency Medicine; Internal Medicine Geriatric Medicine; ADMIT Internal Medicine
PROC: 0JH602Z Insertion of Monitoring Device into Chest Subcutaneous Tissue and Fascia, Open Approach (ICD-10-PCS; principal; 2019-06-05)
PROC: 3E03317 Introduction of Other Thrombolytic into Peripheral Vein, Percutaneous Approach (ICD-10-PCS; principal; 2019-06-05)
DX: I63.9 Cerebral infarction, unspecified (principal); I47.1 Supraventricular tachycardia; G81.91 Hemiplegia, unspecified affecting right dominant side; R47.01 Aphasia; E11.9 Type 2 diabetes mellitus without complications; R48.2 Apraxia; I10 Essential (primary) hypertension; E78.00 Pure hypercholesterolemia, unspecified; H53.47 Heteronymous bilateral field defects; G47.33 Obstructive sleep apnea (adult) (pediatric); E78.5 Hyperlipidemia, unspecified; Z79.82 Long term (current) use of aspirin; Z68.23 Body mass index [BMI] 23.0-23.9, adult; Z90.89 Acquired absence of other organs; Z79.84 Long term (current) use of oral hypoglycemic drugs; Z79.899 Other long term (current) drug therapy; Z87.891 Personal history of nicotine dependence
CPT/HCPCS: 10078; 10203

== ENCOUNTER 2019-06-05 15:56 | Inpatient (IN) | payer OTHER, BC ==
[~2019-06-05] VITALS: Ht 172.7 cm; Wt 66.2 kg
[~2019-06-05 15:56] MED LIST changes: +CLOPIDOGREL75 MG PO; +LIPITOR40 MG PO; +METOPROLOL SUCC50 MG PO
--- NOTE | 2019-06-05 16:10 | NUR ---
CHART REVIEW, CM VISITED WITH PT AND AT BEDSIDE. BOTH A & O X 3, PLEASANT. INTRO TO DCP, TRANSITION OF CARE AND TEAM MEETING, TRIFOLD LIST GIVING TO ON WHAT TO EXCEPT FROM ACUTE REHAB AND WHAT TO BRING. PT INDEPENDENT PRIOR TO HOSPITAL. PT HAS LOOP RECORDER ON UPPER LEFT CHEST, STATED GOING TO GET CHANGED TOMORROW, HE CAN SHOWER JUST CANT GET IT WET. HAS CANE. DRIVING, AND MANAGING HIS OWN MEDICATION. WILL CONT FOLLOWING NEEDED FOR DC NEEDS.
[2019-06-05 17:45] VITALS: BP 144/69
[2019-06-05 19:12] VITALS: BP 106/67; BP 130/66
--- NOTE | 2019-06-05 20:18 | NUR ---
PT ARRIVED AT 1745 FROM ICU. PT ADMIT FOR STROKE WORK UP AT ICU FOR CVA/TIA STATUS POST TPA. HAD EXPRESSIVE APHASIA WITH SOME R SIDE WEAKNESS. VITALS REMAIN STABLE ON RA. T 95 SAID THEY HAD HARD TIME TO TAKE HIS TEMP AT ICU. SAT 100% ON RA DURING DAY, BUT NEED 2L OF O2 AT HS. PT DENIES PAIN AT THIS TIME. PT ALERT AND ORIENTED X4. SAID PT IS MORE ALERT AND ORIENTED TODAY. HAD LEFT LOOP RECORDER BUT REMOVED TODAY AND DR. ORR WILL REPLACE ANOTHER ONE IN THE AM PER . WILL GIVE REPORT TO NIGHT NURSE TO CALL BRICK MACHINE OPERATOR TO LET HIM KNOW PT IS IN ROOM 514 NOW. DRESSING C/D/I. NO SKIN ISSUE NOTED. PT UP WITH 1 SBA, GB AND TOLERATED WELL. REASSESSMENT PER CHART. CONT B&B HAD BM THIS AM. PT HAS URGENCY URINATION. PT LIVES HOME WITH . DISCUSSED ABOUT REHAB PROGRAM. PT AND SIGNED FALL EDUCATION CONTRACT AND ADMISSION CONSENTS. OFFERED SUPPORTIVE CARE. WENT OVER ADMISSION LIST WITH . SAID PT WAS ON CARBIDOPA BY NEUROLOGIST, BUT HIS PCP TOOK HIM OFF AND PT HAS BEEN ON IT FOR A YEAR. CALLED AND NOTIFIED PHARMACIST AND IT IS HOLD AT THIS MOMENT.PT ATE 50% DINNER. UP TO BATHROOM WITH A WALKER. AT BEDSIDE.FALL PRECAUTION IN PLACE. CALL LIGHT WITHIN REACH. GAVE REPORT TO NIGHT NURSE TO CONTINUE TO MONITOR AND NOTIFIED DOCTORS FOR CONSULTS.
--- NOTE | 2019-06-06 01:36 | NUR ---
PT ASSESSMENT DONE AND VSS. MEDS GIVEN AND WELL TOLERATED. FALL PRECAUTIONS IN PLACE. SLEEPING WELL. HOURLY ROUNDING. CALL LIGHT IN REACH. WILL CONTINUE TO MONITOR.
[2019-06-06 03:33] LABS: HEMATOCRIT 41.1 % (42.0-52.0); HEMOGLOBIN 13.7 gm/dL (14.0-18.0); MCH 29.2 pg (26.0-34.0); MCHC 33.4 g/dL (28.0-37.0); MCV 87.4 fL (80.0-100.0); RBC 4.71 mil/uL (4.50-6.00); RDW 13.4 % (10.5-14.5); WBC 7.9 thou/uL (4.0-11.0)
[2019-06-06 03:40] LABS: CALCIUM 9.2 mg/dL (8.5-10.1); CREATININE 0.9 mg/dL (0.7-1.3); POTASSIUM 4.2 mmol/L (3.5-5.1)
[2019-06-06 07:45] VITALS: BP 135/70
--- NOTE | 2019-06-06 09:52 | NUR ---
CONSULT [id number] WAS COMPLETED BY THIS PHYSICIAN ALLERGIST IMMUNOLOGIST.
--- NOTE | 2019-06-06 13:42 | NUR ---
team meeting, recommendation: anticipation dc outpt therapy ( pt, st ). no dme. assistance with pills and bills. no driving utile cleared by MD. loop recorder changed today.
--- NOTE | 2019-06-06 14:35 | NUR ---
sales promotion coordinator to see patient again. pt sleeping in recliner and awakens easily. pt's right eye remains closed for more than a minute and then slowly returns to baseline and opens. pt also unable to raise right eyebrow when asked to lift them. no facial droop noted. speech clear with no confusion noted. I will notify patients nurse and continue to follow this patient for progress.
--- NOTE | 2019-06-06 18:47 | NUR ---
ASSUME PT CARE AT 0700. VSS ON RA. ALERT AND ORIENTED X4. SLOW IN RESPONSE BUT APPROPRIATELY. PT UP WITH 1 SBA, GB WITHOUT DEVICE AND TOLERATED WELL. REASSESSMENT PER CHART. CONT B&B. PT HAS URGENCY URINATION. CALL APPROPRIATELY. PT WENT DOWN FOR IMPLANTED LOOP CARDIAC RECORDER THIS AM. DENIES PAIN, SOB. TOOK MEDS WHOLE ONE AT THE TIME. OFFERED SUPPORTIVE CARE. PT HAD SHOWER WITH OT. UP AND PARTICIPATED WITH THERAPY. UP TO DINNING ROOM FOR MEALS. IV REMOVED. FALL PRECAUTION IN PLACE. CALL LIGHT WITHIN REACH. CHECKED FREQUENTLY FOR NEEDS AND SAFETY. WILL GET REPORT TO NIGHT NURSE TO CONTINUE TO MONITOR.
[2019-06-06 19:40] VITALS: BP 168/79
--- NOTE | 2019-06-07 01:27 | NUR ---
PT ALERT AND ORIENTED X 4 WITH EXPRESSIVE APHASIA. SLOW TO RESPOND. LEFT CHEST DRESSING C/D/I. PT DENIES PAIN OR DISCOMFORT. BED ALARM ON FOR SAFETY. PT HAS BEEN IMPULSIVE A FEW TIMES TONIGHT. SETTING OFF BED ALARM TRYING TO GO TO BATHROOM. BED ALARM ON FOR SAFETY. PT CHECKED ON HOURLY ROUNDS. PT EASILY VISIBLE FROM NURSES STATION.
[2019-06-07 10:12] VITALS: BP 122/76
--- NOTE | 2019-06-07 10:13 | NUR ---
PT WAS WORKING WITH THERAPY THIS AM. PT WAS ASSISTED TO BATHROOM VIA X1 STAND-BY. PT GAIT STEADY, NEEDS OBSERVATION WITH AMBULATION. PT WITH SPEECH THERAPY. PT NEEDING MEDS CRUSHED AND DRY SWALLOW AFTER EACH BITE. THIS [employer] INSTRUMENTS INSPECTOR CHECKED WITH PHARMACY TO SEE WHICH MEDS ARE CRUSHABLE. PT TOLERATED CRUSHED MEDS IN APPLESAUCE.
--- NOTE | 2019-06-07 11:30 | NUR ---
ORDERS OBTAINED WITH MEDS THAT CAN BE CRUSHED.
--- NOTE | 2019-06-07 14:19 | NUR ---
PT HAS BEEN RESTING SINCE AFTER LAST THERAPY. PT TOLERATING MECH SOFT DIET. PT DOES HAVE A GARGLE SOUND AFTER EATING OR DRINKING. PT IS TOLERATING CRUSHED MEDS IN APPLESAUCE OR THICKEN LIQUID.
[2019-06-07 19:07] VITALS: BP 127/70
--- NOTE | 2019-06-08 00:55 | NUR ---
PT ALERT AND ORIENTED X 4. IMPULSIVE AT TIMES. PT TOOK HS MEDS CRUSHED IN APPLESAUCE WITHOUT DIFFICULTY. LEFT CHEST DRESSING C/D/I. PT DENIES PAIN OR DISCOMFORT. BED ALARM ON FOR SAFETY. PT APPEARS TO BE SLEEPING ON HOURLY ROUNDS.
[2019-06-08 09:00] VITALS: BP 123/63
[2019-06-08 21:06] VITALS: BP 132/69
--- NOTE | 2019-06-08 21:21 | NUR ---
ASSUMED CARE OF PT AT 0715. PT IS ALERT AND ORIENTED TO PERSON FREQUENTLY CONFUSED AND FORGETFUL. PT DENIES PAIN AND PARTICIPATED IN SCHEDULED THERAPIES. PT MAKES NO ATTEMPTS TO CALL FOR ASSISTANCE AND REFUSES TO USE GAIT BELT AND WALKER. ALARMS IN PLACE AND FALL PRECAUTIONS REINFORCED TO PT. PER ST PT TO HAVE NECTAR THICK LIQUIDS WITH SPOON. NURSING OFFERING FLUIDS FREQUENTLY TO PT. IV PLACED TO RIGHT FOREARM PER ORDERS FROM JORDAN FOFANA NP DUE TO CONCERNS ABOUT DEHYDRATION. IV IS SALINE LOCKED AT THIS TIME. FAMILY AT BEDSIDE THIS AFTERNOON AND EXPRESS CONCERN ABOUT PT NOT BEING ASSISTED WITH TOILETING. FAMILY DENIES THAT PT IS CONFUSED AND DISORIENTED AT TIMES. PT REPORTS TO FAMILY THAT HE HAS CALLED FOR ASSISTANCE, BUT PER STAFF THIS SHIFT AND OVERNIGHT PT DOES NOT USE CALL LIGHT FOR ASSISTANCE, TO WHICH FAMILY IS NOT RECEPTIVE AT THIS TIME. HOURLY ROUNDING COMPLETED AND PT IN ROOM AT NURSES STATION. FAMILY STATES "WHEN HE NEEDS TO GO HE NEEDS TO GO RIGHT AWAY AND HE CANNOT WAIT, SO SOMEONE NEEDS TO BE WITH HIM IMMEDIATLY." INFORMED FAMILY THAT WE WILL MAKE EVERY ATTEMPT TO ASSIST PT WITH MEETING HIS NEEDS. FALL PRECAUTIONS IN PLACE AND NURSING WILL CONTINUE TO MONITOR.
--- NOTE | 2019-06-09 00:49 | NUR ---
PT ASSESSMENT DONE AND VSS. MEDS GIVEN AND WELL TOLERATED. FALL PRECAUTIONS IN PLACE. SLEEPING WELL. CALLED IN EVENING TO CHECK ON PT. HOURLY ROUNDING. CALL LIGHT IN REACH. WILL CONTINUE TO MONITOR.
[2019-06-09 05:19] LABS: CALCIUM 9.1 mg/dL (8.5-10.1); POTASSIUM 3.9 mmol/L (3.5-5.1)
[2019-06-09 10:08] VITALS: BP 119/72
--- NOTE | 2019-06-09 18:36 | NUR ---
ASSUMED CARE AT 0700. PATIENT IS ALERT AND ORIENTED X3. PATIENT HAS RIGHT SIDED WEAKNESS. PATIENT IS UP IN THE CHAIR. OUT TO THE DINING ROOM FOR MEALS. PATIENT HAS SOME EXPRESSIVE APHAGIA. PATIENT CAN BE IMPULSIVE AT TIMES.PATIENT HAS S.L. IN HIS RIGHT F.A. PATIENT IS ON NECTAR THICK LIQUIDS. FF Q 1 HOUR WA PATIENT IS UP WITH ASSIST OF 1 WITH GAIT BELT AND WALKER. FALL AND SAFETY PROTOCOLS IN PLACE. DENIES PAIN. CONTINUES TO PROGRESS TOWARDS D/C GOALS. WILL CONTINUE TO MONITER.
[2019-06-09 20:00] VITALS: BP 143/77
--- NOTE | 2019-06-10 01:59 | NUR ---
UP TO TOILET WITH STANDBY ASSIST TO VOID SITTING DOWN. TOLERATES MEDS CRUSHED IN APPLESAUCE. COOPERATIVE WITH TAKING 10-12 SPOONFULS OF NECTAR THICK LIQUID HOURLY UNTIL 2300, HAS BEEN SLEEPING SINCE THEN.
[2019-06-10 08:00] VITALS: BP 127/71
--- NOTE | 2019-06-10 10:23 | NUR ---
ASSUMED CARE AT 0700. PATIENT IS AERT AND ORIENTED X3. PATIENT HAS RIGHT SIDED WEAKNESS AND EXPRESSIVE APHAGIA. PATIENT CAN BE IMPULSIVE AT TIMES. PATIENT LUNGS ARE CLEAR AND DEMINISHED. ABD IS SOFT WITH BSX4. UP TO THE BATHROOM WITH ASSIST OF 1 STAFF AND GAIT BELT AND WALKER TO THE BATHROOM. PATIENT HAS LOOP RECORDER ON HIS LEFT SIDE. PATIENT HAS S.L. IN HIS RIGHT FORARM. FALL AND SAFETY PROTOCOLS IN PLACE. DENIES ANY PAIN. CONTINUES TO PROGRESS TOWARDS D/C GOALS. OUT TO THE DINING ROOM FOR MEALS. WILL CONTINUE TO MONITER.
[2019-06-10 19:55] VITALS: BP 150/70
--- NOTE | 2019-06-11 02:48 | NUR ---
USING CALL LIGHT PRIOR TO WALK TO TOILET. ABLE TO STAND FOR VOID WITH SBA MEDS CRUSHED IN APPLESAUCE. TOLERATING 10-15 SPOONFULS OF NECTAR THICK WATER WHILE SITTING UP IN CHAIR. PLEASANT
[2019-06-11 07:40] VITALS: BP 153/72
--- NOTE | 2019-06-11 13:02 | NUR ---
0715 ASSUMED CARE OF PATIENT ON 06/11/19. 0730 PATIENT LYING IN BED BRIEF CHANGED WITH BM SMEAR NOTED. NO REDNESS NOTED MOISTURE BARRIER APPLIED. ASSISTED PATIENT IN GETTING DRESSED. A+O X4, BILATERAL LS CLEAR, NO C/O PAIN. LOOP SITE COVERED WITH DRESSING C/D/I. NO SIGNS OF REDNESS NOTED AROUND DRSG. NO SIGNS OF REDNESS NOTED AROUND DRESSING. PATIENT AMB TO DAYROOM W/ASSIST X1 AND USE OF GAIT BELT. SITTING IN CHAIR W/CHAIR ALARM IN PLACE FOR [facility] 0850 MEDICATIONS GIVEN CRUSHED IN APPLSAUCE TAKEN WITHOUT DIFFICULTY.
--- NOTE | 2019-06-11 14:13 | NUR ---
AT 1400 PATIENT STATES DESIRE TO AMBULATE IN [place]. GAIT BELT APPLIED, WRITTER ASSISTS PATIENT IN AMBULATING IN OUTER HALLWAY. PATIENT WALKS THE SQUARE WITHOUT DIFFICULTY AND NO C/O OF PAIN OR SOB. BACK TO ROOM, ASSISTED TO BED. PT SITTING UP IN BED WITH VISITORS IN ROOM. DENIES OTHER NEEDS AT THIS TIME.
--- NOTE | 2019-06-11 18:38 | NUR ---
WAS HERE VISITING, JUST LEFT. PATIENT UP IN RECLYNER SITTING. TAKING SIPS OF THICKENED ICE TEA. DENIES NEEDS AT THIS TIME.
[2019-06-11 19:41] VITALS: BP 168/71
--- NOTE | 2019-06-11 22:50 | NUR ---
PT ASSESSMENT DONE AND VSS. MEDS GIVEN AND WELL TOLERATED. FALL PRECAUTIONS IN PLACE. SLEEPING WELL. HOURLY ROUNDING. CALL LIGHT IN REACH. WILL CONTINUE TO MONITOR.
[2019-06-12 07:34] LABS: CALCIUM 8.8 mg/dL (8.5-10.1); CREATININE 0.8 mg/dL (0.7-1.3)
[2019-06-12 08:20] VITALS: BP 139/64
--- NOTE | 2019-06-12 12:30 | NUR ---
cm stopped by and st, wanted to make sure cm knew he was going to need vital stim. stated " hh right"/? . education that MD wanted to go to outpt rehab " Oh i am having injection in my back and not going to be able to drive for while, so if could do hh for little that would help"/- antonio. cm sent message to MD and team and ok with hh. list hh choice provided for and pt " [facility] ok, we never had [facility]h in past"/bernadine. referral to [facility] to be sent.
--- NOTE | 2019-06-12 13:34 | NUR ---
DISCHARGE PLANNED FOR 06/14 PER UNIT CM. HOME WITH HOME HEALTH SERVICES. PATIENT WILL NEED VITAL STEM. PATIENT REFERRAL FAXED TO [facility]. CALL PLACED TO SENTHIL ALVAREZ LIAISON. TO NOTIFY. AWAITING RESPONSE. FOLLOWING.
--- NOTE | 2019-06-12 15:26 | NUR ---
ASSUMED CARE OF PATIENT AT 0700. AXO X4, ABLE TO VOICE HIS NEEDS. VSS ON RA. BS CHECK BID. CONTINUE TO BE ON METFORMIN. REASSESSMENT PER CHART. BILATERAL LS CLEAR. PT IS ON NECTAR THICKEN WITH SPOON IN ROOM. MEDS CRUSHED GIVEN WITH APPLE SAUCE. HAD CHEST XRAY TO F/U WITH ASPIRATION. NO C/O PAIN. LOOP SITE COVERED WITH DRESSING C/D/I. NO SIGNS OF REDNESS NOTED AROUND DRSG. NO SIGNS OF REDNESS NOTED AROUND DRESSING. PATIENT AMB TO DAYROOM W/ASSIST X1 AND USE OF GAIT BELT. CONT B&B. OFFERED TOILETING FREQUENTLY. FALL PRECAUTION IN PLACE. AT BEDSDIDE. RESTING IN BED AND WATCHING TV NOW WITH HIS .CALL LIGHT WITHIN REACH. WILL CONTINUE TO MONITOR.
[2019-06-12 20:05] VITALS: BP 131/70
--- NOTE | 2019-06-12 22:54 | NUR ---
PT ASSESSMENT DONE AND VSS. MEDS GIVEN AND WELL TOLERATED. FALL PRECAUTIONS IN PLACE. HOURLY ROUNDING. CALL LIGHT IN REACH. WILL CONTINUE TO MONITOR.
[2019-06-13 06:43] LABS: CALCIUM 8.9 mg/dL (8.5-10.1); CREATININE 0.8 mg/dL (0.7-1.3); POTASSIUM 3.7 mmol/L (3.5-5.1)
[2019-06-13 08:00] VITALS: BP 130/77
--- NOTE | 2019-06-13 10:58 | H ---
[facility] [address] [place] [address] HISTORY AND PHYSICAL Name: WICHO COATS Room #: 514-P ADM IN M.R.#: [id number] Admission: 06/05/19 Attend Phys: Donell Harmon MD Discharge: Date of : 36 Report #: [id number] THIS REPORT FOR: //name// CC: Dominick Harmon DATE OF SERVICE: 06/05/2019 POSTADMISSION PHYSICIAN EVALUATION HISTORY OF PRESENT ILLNESS: The patient has been admitted for acute in-hospital inpatient rehabilitation. Please see my prior inpatient rehabilitation consult and see the history and physical. I agree with the documentation, examination, assessment and plan as noted in the history and physical. The patient originally presented to [facility] with acute mental status changes, apraxia, ataxia, right-sided weakness, and right hemianopia. He was given TPA and admitted to the ICU. He was felt to have had a CVA/TIA. Plavix was added. Cardiology consulted and recommended a loop recorder for his history of PSVT. The patient has now been admitted for acute in-hospital inpatient rehabilitation. PAST MEDICAL HISTORY: As documented. He has been on Sinemet in the past for possible Parkinson's, although it did not appear that the medication helped very well and it sounds like it was stopped at home. ALLERGIES: No known drug allergies. MEDICATIONS: Please see the MAR. SOCIAL HISTORY, FAMILY HISTORY, HABITS: See the history and physical. REVIEW OF SYSTEMS: He feels that he is doing better. No complaints of chest pain, shortness of breath with activity. No abdominal discomfort. PHYSICAL EXAMINATION: GENERAL: Please see the examination as noted in the history and physical. He was alert. HEENT: Appeared to be benign. CHEST: Sounded clear to auscultation. CARDIOVASCULAR: Regular rate and rhythm. ABDOMEN: Bowel sounds positive, nontender. NEUROLOGIC: Facies appeared to be symmetric. He may have some mild cogwheeling of his elbows. No tremors. Strength is probably at least a grade 3+/5. Could not document any obvious hemianopia. He is a limited historian, some slowed verbal responses. No obvious dysarthria. [facility] [address] [place] [address] HISTORY AND PHYSICAL Name: WICHO COATS Room #: 514-P [facility] IN [facility].#: [id number] Admission: 06/05/19 Attend Phys: Donell Harmon MD Discharge: Date of : 38 Report #: [id number] ASSESSMENT: An 79-year-old white male with the following problem list: 1. Cerebrovascular accident/right hemianopia, status post tissue plasminogen activator. 2. Expressive aphasia. 3. Moderate apraxia. 4. Paroxysmal supraventricular tachycardia, status post loop recorder. 5. Diabetes mellitus type 2. 6. Hypertension. 7. History of esophageal mass. PLAN: The patient has been admitted for acute in-hospital inpatient rehabilitation. From a postadmission physician evaluation perspective, there are no relevant changes since the preadmission screening. Please see the above review of prior, current medical and functional conditions, and comorbidities. Please see the patient's previous and current functional status. As far as risk of complications, the patient has multiple medical comorbidities as noted above. Initial plan of care involves the interdisciplinary acute inpatient rehabilitation program. Measurable functional goals would be for the patient to become modified independent with transfers, mobility, ADLs and to improve as far as cognition and speech, so that he can return back home with . Prognosis is reasonably good with estimated length of stay probably around 7-10 days, pending progress. Potential barriers would include his multiple medical comorbidities and decreased functional status. <ELECTRONICALLY SIGNED> By: Donell Harmon MD 06/13/19 1058 [id number] Donell Harmon MD /[facility]
--- NOTE | 2019-06-13 10:59 | NUR ---
ASSUMED CARE AT 0700. PATIENT IS ALERT AND ORINETED X4. PATIENT IS UP WITH ASSIST OF 1 STAFF AND GAIT BELT TO THE BATHROOM TO HAVE A BM. LUNGS ARE CLEAR AND DEMINISHED. ABD IS SOFT WITH BSX4. PATIENT IS VOIDING LAILA COLORED URINE. UP TO THE DINING ROOM TO MEALS. PATIENT DOWN TO RADIOLOGY FOR VIDEO SWALLOW. PATIENT DID NOT DO WELL WITH NECTAR THICK LIQUIDS AND WAS DOWNGRADED TO HONEY THICK LIQUIDS. FALL AND SAFETY PROTOCOLS INPLACE. DENIES PAIN AT THIS TIME. CONTINUES TO PROGRESS TOWARDS D/C GOALS. WILL CONTINUE TO MONITER.
[2019-06-13] MEDS ORDERED: LOPRESSOR25 PO (12:05)
--- NOTE | 2019-06-13 12:21 | NUR ---
team meeting, recommendation. staff offer drink q hr, vs today asp on nectar was down grade to honey thick and mech soft. will cont to need vital stim. interim hh (pt,ot,st with vital stim). no driving till cleared by pcp. speech to educate and zach with altered diet and thicken liquids. dc on
[2019-06-13 20:45] VITALS: BP 132/68
--- NOTE | 2019-06-14 04:46 | NUR ---
UP TO TOILET WITH GAIT BELT AND STANDBY ASSIST, STEADILY STANDING TO VOID. LOOKING FORWARD TO GOING HOME TODAY, TOLERATING MEDS IN APPLESAUCE, TAKING HONEY THICK LIQUIDS.
[2019-06-14 08:00] VITALS: BP 133/64
--- NOTE | 2019-06-14 08:24 | NUR ---
ASSUMED CARE AT 0700. PATIENT IS ALERT AND ORIENTED X4. PATIENT HENDRICKSON'S, PATIENT IS UP WITH GAIT BELT AND ASSIST OF 1 STAFF. PATIENT LUNGS ARE CLEAR. ABD IS SOFT WITH BSX4. PLAN IS FOR PATIENT TO D/C TO HOME LATER TODAY. UP TO THE [id number] TO VOID LAILA COLORED URINE. FALL AND SAFETY PROTOCOLS IN PLACE. DENIES PAIN AT THIS TIME. CONTINUES TO PROGRESS TOWARDS D/C GOALS. WILL CONTINUE TO MONITER. PLAN FOR ST TO DO VITASTIM THIS AM WITH BREAKFAST.
[2019-06-14 09:59] VITALS: BP 132/68
[2019-06-14 10:13] VITALS: BP 132/68
--- NOTE | 2019-06-14 11:45 | NUR ---
DISCHARGE INSTRUCTIONS GIVEN TO PATIENT AND . PATIENT LEFT FACILITY IN W/C AND WITH ALL OF HIS BELONGINGS.
--- NOTE | 2019-06-16 12:36 | PLAN ---
[facility] [address] [place] [address] REHAB UNIT PLAN OF CARE Name: WICHO COATS Room #: 514-P [facility] IN M.R.#: [id number] Admission: 06/05/19 Attend Phys: Donell Harmon MD Discharge: 06/14/19 Date of : 38 Report #: [id number] THIS REPORT FOR: //name// CC: Dominick Harmon DATE OF SERVICE: 06/07/2019 HISTORY AND PHYSICAL AND POST-ADMISSION PHYSICIAN EVALUATION SUBJECTIVE: The patient is seen back today in followup. He is in no distress. Last recorded temperature 97.6, pulse 63, respirations 16, blood pressure 168/79. The patient is pleasant. He follows basic commands. Transfers are standby assistance. Gait is contact guard 200 feet without a device. In occupational therapy, lower body dressing is min assist. In speech therapy, he has [id number]-[id number]-[id number] cognitive deficits, moderate to severe memory deficits. He does have some moderate comprehensive impairments, also has moderate expressive impairment. He does have deficits in word finding and word fluency. ASSESSMENT: 1. Cerebrovascular accident, status post TPA. 2. Expressive aphasia. 3. Moderate apraxia. 4. PSVT, status post loop recorder. 5. Diabetes mellitus type 2. 6. Hypertension. 7. History of esophageal mass. PLAN: The overall plan of care is based on the preadmission screen, post-admission physician evaluation and information garnered from therapy assessments. 1. Estimated length of stay is at this point for one more week with a tentative discharge for next 06/14/2019. 2. Medical prognosis is reasonably good. 3. Anticipated interventions includes the interdisciplinary acute inpatient rehabilitation program. 4. Anticipated functional outcomes would be for the patient to become modified independent with transfers, mobility and ADLs with or without gait aids. We will need to see how he does and also to improve as far as overall cognition and expression, so that he could return back to the home setting. 5. Discharge destination would be back home with his . 6. Expected therapy by discipline includes PT and OT and speech 1 hour per day each five days a week throughout the duration of the acute inpatient rehabilitation stay. [address] [address] REHAB UNIT PLAN OF CARE Name: PAULYWICHO Maggi Room #: 514-P [facility] IN [facility].#: [id number] Admission: 06/05/19 Attend Phys: Donell Harmon MD Discharge: 06/14/19 Date of : 38 Report #: [id number] ADDENDUM: The patient did miss some therapy yesterday due to the loop recorder that was placed by Cardiology. <ELECTRONICALLY SIGNED> By: Donell Harmon MD 06/16/19 1236 [id number] Donell Harmon MD /PMT
== END 2019-06-14 12:01 | disposition home health service (06) | DRG 65 ==
LOC: ENTRNSPT 06-14 11:47
PROVIDERS: Nurse Practitioner Family; ADMIT Physical Medicine & Rehabilitation
DX: I63.9 Cerebral infarction, unspecified (principal); I47.1 Supraventricular tachycardia; R47.01 Aphasia; R48.2 Apraxia; E11.9 Type 2 diabetes mellitus without complications; H53.461 Homonymous bilateral field defects, right side; I10 Essential (primary) hypertension; E78.5 Hyperlipidemia, unspecified; F01.50 Vascular dementia, unspecified severity, without behavioral disturbance, psychotic disturbance, mood disturbance, and anxiety; R13.10 Dysphagia, unspecified; Z90.49 Acquired absence of other specified parts of digestive tract; Z79.899 Other long term (current) drug therapy; Z85.01 Personal history of malignant neoplasm of esophagus; Z86.73 Personal history of transient ischemic attack (TIA), and cerebral infarction without residual deficits
CPT/HCPCS: 10112

== ENCOUNTER → 2019-07-11 | Outpatient (CLI) | payer OTHER, BC ==
[~2019-07-11] MED LIST changes: +LOPRESSOR25 PO
== END ==
LOC: SJCVC 14:14
DX: I63.9 Cerebral infarction, unspecified (principal); E78.5 Hyperlipidemia, unspecified; Z79.84 Long term (current) use of oral hypoglycemic drugs; Z79.899 Other long term (current) drug therapy

== ENCOUNTER → 2020-01-08 | Outpatient (CLI) | payer OTHER, BC | LOC: SJCVC 09:24 | PROVIDERS: ATTEND Internal Medicine | DX: K21.9 Gastro-esophageal reflux disease without esophagitis (principal); I63.9 Cerebral infarction, unspecified; E78.5 Hyperlipidemia, unspecified; Z79.899 Other long term (current) drug therapy ==

== ENCOUNTER → 2020-07-10 | Outpatient (CLI) | payer OTHER, BC | LOC: SJCVC 10:01 | PROVIDERS: ATTEND Internal Medicine | DX: I63.9 Cerebral infarction, unspecified (principal); E78.5 Hyperlipidemia, unspecified; E11.9 Type 2 diabetes mellitus without complications; M79.604 Pain in right leg; M79.605 Pain in left leg; K21.9 Gastro-esophageal reflux disease without esophagitis; Z90.49 Acquired absence of other specified parts of digestive tract; Z95.818 Presence of other cardiac implants and grafts; Z79.899 Other long term (current) drug therapy; Z72.89 Other problems related to lifestyle ==

== ENCOUNTER → 2020-07-23 | Outpatient (CLI) | payer OTHER, BC | LOC: SJCVCIMAG 08:19 | PROVIDERS: ATTEND Internal Medicine | DX: I70.203 Unspecified atherosclerosis of native arteries of extremities, bilateral legs (principal); E11.51 Type 2 diabetes mellitus with diabetic peripheral angiopathy without gangrene; E78.00 Pure hypercholesterolemia, unspecified; I63.9 Cerebral infarction, unspecified; E78.5 Hyperlipidemia, unspecified; Z90.49 Acquired absence of other specified parts of digestive tract; Z98.890 Other specified postprocedural states; Z79.899 Other long term (current) drug therapy; Z86.16 Personal history of COVID-19 ==

== ENCOUNTER → 2020-07-29 | Outpatient (CLI) | payer OTHER, BC ==
[~2020-07-29] VITALS: Ht 172.7 cm; Wt 68.1 kg
[~2020-07-29] MED LIST changes: +GLIMEPIRIDE1 MG PO; +JARDIANCE10 MG PO
[2020-07-29 07:21] VITALS: BP 152/68
[2020-07-29 07:37] LABS: HEMATOCRIT 41.2 % (42.0-52.0); HEMOGLOBIN 13.9 gm/dL (14.0-18.0); MCH 29.2 pg (26.0-34.0); MCHC 33.7 g/dL (28.0-37.0); MCV 86.7 fL (80.0-100.0); RBC 4.75 mil/uL (4.50-6.00); RDW 13.8 % (10.5-14.5); WBC 8.9 thou/uL (4.0-11.0)
[2020-07-29 07:44] LABS: CALCIUM 9.5 mg/dL (8.5-10.1); CREATININE 1.4 mg/dL (0.7-1.3); POTASSIUM 4.4 mmol/L (3.5-5.1)
== END | disposition home or self-care (01) ==
LOC: CATH 06:37
PROVIDERS: Radiology Diagnostic Radiology; ATTEND Nuclear Medicine Nuclear Cardiology
DX: I70.238 Atherosclerosis of native arteries of right leg with ulceration of other part of lower leg (principal); L97.919 Non-pressure chronic ulcer of unspecified part of right lower leg with unspecified severity; I70.1 Atherosclerosis of renal artery; I10 Essential (primary) hypertension; E11.9 Type 2 diabetes mellitus without complications; E78.5 Hyperlipidemia, unspecified; K21.9 Gastro-esophageal reflux disease without esophagitis; Z98.890 Other specified postprocedural states; Z79.899 Other long term (current) drug therapy; Z86.73 Personal history of transient ischemic attack (TIA), and cerebral infarction without residual deficits; Z87.891 Personal history of nicotine dependence; Z79.4 Long term (current) use of insulin

== ENCOUNTER → 2020-08-05 | Outpatient (CLI) | payer OTHER, BC ==
[~2020-08-05] VITALS: Ht 172.7 cm; Wt 68.0 kg
[2020-08-05 07:34] VITALS: BP 150/64
[2020-08-05 08:11] LABS: CALCIUM 9.6 mg/dL (8.5-10.1); CREATININE 1.2 mg/dL (0.7-1.3)
== END | disposition home or self-care (01) ==
LOC: CATH 06:32
PROVIDERS: ATTEND Nuclear Medicine Nuclear Cardiology
DX: I70.212 Atherosclerosis of native arteries of extremities with intermittent claudication, left leg (principal); M79.605 Pain in left leg; I10 Essential (primary) hypertension; E11.9 Type 2 diabetes mellitus without complications; E78.5 Hyperlipidemia, unspecified; K21.9 Gastro-esophageal reflux disease without esophagitis; Z98.890 Other specified postprocedural states; Z79.899 Other long term (current) drug therapy; Z86.73 Personal history of transient ischemic attack (TIA), and cerebral infarction without residual deficits; Z79.4 Long term (current) use of insulin

== ENCOUNTER → 2020-10-28 | Outpatient (CLI) | payer OTHER, BC ==
[~2020-10-28] MED LIST changes: +ASA81BEC PO
== END ==
LOC: SJCVCIMAG 14:18
PROVIDERS: ATTEND Nuclear Medicine Nuclear Cardiology
DX: I65.23 Occlusion and stenosis of bilateral carotid arteries (principal); I70.203 Unspecified atherosclerosis of native arteries of extremities, bilateral legs; E78.00 Pure hypercholesterolemia, unspecified; E11.9 Type 2 diabetes mellitus without complications; Z86.16 Personal history of COVID-19; Z86.73 Personal history of transient ischemic attack (TIA), and cerebral infarction without residual deficits; E78.5 Hyperlipidemia, unspecified; Z72.89 Other problems related to lifestyle; Z79.82 Long term (current) use of aspirin; Z79.899 Other long term (current) drug therapy

== ENCOUNTER 2020-11-01 05:54 | Inpatient (IN) | payer OTHER, BC ==
[2020-11-01] VITALS (7 sets, daily range): BP systolic 130–152; BP diastolic 57–77
[~2020-11-01] VITALS: Ht 175.3 cm; Wt 64.0 kg
--- NOTE | ~2020-11-01 | EMS ---
[address] [address] EMS Patient Care Report Name: WICHO COATS Room #: REG YULISA Mckeon#: [id number] Admission: 11/01/20 Attend Phys: Discharge: Date of : 38 Report #: [id number] THIS REPORT FOR: //name// Report Transmitted: 11/01/2020 05:26 EMS Care Summary [place], [place]/[facility] Incident [id number] @ 11/01/2020 05:07 Incident Location [address] [place], [place] [id number] Patient WICHO COATS Male, 80 Years 1940 Patient Address [address] [place], [place] [id number] Patient History Hypertension (HTN),Hyperlipidemia,Atrial Fibrillation,Type 2 Diabetes, Patient Allergies No known allergies, Patient Medications Other, ASA, Pantoprazole, Glimepiride, Clopidogrel, Atorvastatin, Metoprolol, Chief Complaint Weakness, not as alert Disposition Transported No Lights/[place] Dispatch Reason Falls Transported To [facility] Narrative Called for a fall. Upon arrival, pt was awake, sitting in his chair. His stated he was weak, malaise, trouble walking and just not acting right. She said this all started yesterday. She denied N/V and diarrhea but thought he might of had a fever although he does not feel warm at this time. He is able [place] [id number] EMS Patient Care Report Name: WICHO COATS Room #: REG [facility]..#: [id number] Admission: 11/01/20 Attend Phys: Discharge: Date of : 38 Report #: [id number] to walk to the EMS cot with assistance. She requests transport to [facility] ER for further eval & tx and he agrees. Pt loaded into the ambulance w/o incident. Vitals obtained. 4 and 12 lead, no ST elevation noted. 18g IV and D-stick. Vitals repeated. En route: no changes. RR to ER. Arrived: pt taken to ER #8 and moved to their bed w/o incident. Pt care & report to ER staff. Initial Vitals @05:28P: 96, @05:22P: 101,R: 16,BP: 161/82,Pain: 0/10,GCS: 14,Glucose: 201,SpO2: 95,Revised Trauma: 12, @05:35P: 97,R: 18,BP: 145/77,Pain: 0/10,GCS: 14,SpO2: 95,Revised Trauma: 12,FL Suspected: true @05:34P: 100,Pain: 0/10,GCS: 15,FL Suspected: false Assessments @05:14MENTAL:Other,Person Oriented,Place Oriented,Time Oriented,SKIN:HEENT:Eyes: Left Pupil: 2-mm,Eyes: Right Pupil: 2-mm,Head/Face: No Abnormalities,Neck/Airway: No Abnormalities,LUNG SOUNDS:ABDOMEN:PELVIS//GI:EXTREMITIES:Left Arm: No Abnormalities,Right Arm: No Abnormalities,Left Leg: No Abnormalities,Right Leg: No Abnormalities,PULSE:Radial: 2+ Normal,NEURO: Impression Malaise Procedures @05:3412-Lead ECGResponse: UnchangedSucceeded@05:2812-Lead ECGResponse: UnchangedSucceeded@05:32Saline Lock 8cc (18 ga) Site: Forearm-LeftResponse: UnchangedSucceeded@05:14ALS AssessmentResponse: UnchangedSucceeded@05:20StretcherResponse: Unchanged@05:263-Lead ECGResponse: UnchangedSucceeded Timeline 05:04,Call Received 05:04,Dispatch Notified 05:07,Dispatched 05:08,En Route 05:13,On Scene 05:14,At Patient 05:14,ALS Assessment,Response: UnchangedSucceeded, 05:20,Stretcher,Response: Unchanged 05:22,BP: 161/82 M,PULSE: 101,RR: 16 R,SPO2: 95 Ox,ETCO2: ,B,PAIN: 0,GCS: 14, 05:26,3-Lead ECG,Response: UnchangedSucceeded, 05:28,12-Lead ECG,Response: UnchangedSucceeded, 05:28,BP: / M,PULSE: 96,RR: R,SPO2: Ox,ETCO2: ,BG: ,PAIN: ,GCS: , [facility] [address] [place] [address] EMS Patient Care Report Name: WICHO COATS Room #: REG YULISA Mckeon#: [id number] Admission: 11/01/20 Attend Phys: Discharge: Date of : 38 Report #: [id number] 05:32,Saline Lock 8cc 18 ga Site: Forearm-Left,Response: UnchangedSucceeded, 05:34,12-Lead ECG,Response: UnchangedSucceeded, 05:34,BP: / M,PULSE: 100,RR: R,SPO2: Ox,ETCO2: ,BG: ,PAIN: 0,GCS: 15, 05:35,BP: 145/77 M,PULSE: 97,RR: 18 R,SPO2: 95 Ox,ETCO2: ,BG: ,PAIN: 0,GCS: 14, 05:38,Depart Scene 05:49,At Destination 06:12,Call Closed Disclaimer v1.1 Copyright 2020 [employer] This EMS Care Summary contains data elements from the applicable legal record (which may be displayed differently). It is designed to provide pertinent information for the following purposes: continuity of care, clinical quality, and state data reporting. The complete legal record is available to ED staff and administrators of the receiving hospital in [employer] Patient Tracker. All data is provided "as is."
[~2020-11-01 05:54] MED LIST changes: -ASA81BEC PO
[2020-11-01] MEDS ORDERED: ASA81BEC PO (06:39)
[2020-11-01 06:54] LABS: URINE BILIRUBIN NEGATIVE (Negative); URINE BLOOD 2+ (Negative); URINE COLOR YELLOW; URINE GLUCOSE-RANDOM* 3+ (Negative); URINE KETONES NEGATIVE (Negative); URINE NITRITE-REFLEX NEGATIVE (Negative); URINE PROTEIN (DIPSTICK) TRACE (Negative); URINE UROBILINOGEN 0.2 E.U./dl (0.2-1.0)
[2020-11-01 06:55] LABS: URINE CLARITY HAZY; URINE LEUKOCYTES-REFLEX 1+ (Negative)
[2020-11-01 07:01] LABS: AMP/METHAMP Negative (Negative); BARBITURATES Negative (Negative); BENZODIAZEPINES Negative (Negative); COCAINE Negative (Negative); METHADONE Negative (Negative); OPIATES Negative (Negative); PCP Negative (Negative)
[2020-11-01 07:11] LABS: CASTS None Seen /LPF (None Seen); SQUAMOUS 0-3 Few /LPF (0-3)
[2020-11-01 07:12] LABS: BACTERIA-REFLEX >30 Many /HPF (None Seen); CRYSTALS None Seen /LPF (None Seen); URINE RBC 1-2 Rare /HPF (NONE SEEN); URINE WBC-REFLEX >25 Many /HPF (0-5)
[2020-11-01 07:23] LABS: BASOPHILS 0.4 % (0.0-2.0); EOSINOPHILS 0.4 % (0.0-3.0); HEMATOCRIT 38.2 % (42.0-52.0); HEMOGLOBIN 12.5 gm/dL (14.0-18.0); LYMPHOCYTES 17.1 % (24.0-44.0); MCH 27.8 pg (26.0-34.0); MCHC 32.6 g/dL (28.0-37.0); MCV 85.2 fL (80.0-100.0); MONOCYTES 9.1 % (1.0-8.0); PLATELET COUNT 183 thou/uL (150-400); RBC 4.49 mil/uL (4.50-6.00); RDW 14.4 % (10.5-14.5)
[2020-11-01 07:30] LABS: ANION GAP 9 mmol/L (7-16); BUN 25 mg/dL (7-18); CHLORIDE 100 mmol/L (98-107); CO2 24 mmol/L (21-32); CREATININE 1.5 mg/dL (0.7-1.3); GLUCOSE 219 mg/dL (74-106); POTASSIUM 4.2 mmol/L (3.5-5.1); SODIUM 133 mmol/L (136-145)
--- NOTE | 2020-11-01 07:33 | EKG ---
[place] [address] [address] [place] [address] ELECTROCARDIOGRAM REPORT Name: WICHO COATS [id number] Admission: 11/01/20 Attend Phys: Discharge: Date of : 38 Report #: [id number] 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
[2020-11-01 07:43] LABS: ALBUMIN 3.3 g/dL (3.4-5.0); SGOT 29 U/L (15-37); SGPT 41 U/L (16-63); TOTAL BILIRUBIN 1.5 mg/dL (0.2-1.0); TOTAL PROTEIN 7.7 g/dL (6.4-8.2); TROPONIN-I <0.06 ng/mL (<0.06)
--- NOTE | 2020-11-01 11:39 | NUR ---
PATIENT ARRIVED ON UNIT APPROXIMATELY 1025. PATIENT IS A&OX2. IS AT BEDSIDE TO ASSIST IN ADMISSION QUESTIONS. PATIENT DENIES ANY PAIN, NUMBNESS, OR TINGLING. PATIENT HAS A WOUND ON HIS BOTTOM, BUT WILL NOT LET A PICTURE BE TAKEN AT THIS TIME, ENDORSED THIS TO NURSE. PATIENT REPORTS A HISTORY OF AN IMPLANTED SITE ADMINISTRATOR, STENTS IN BILATERAL LEGS, AND A HISTORY OF CVA. PATIENT IS INCONTINENT, DENIES ANY BURNING WITH URINATION. SCD'S ARE ON, FALL PRECAUTIONS ARE IN PLACE.
--- NOTE | 2020-11-01 17:07 | NUR ---
ASSUMED PT CARE AT 1020 FROM ER. PT IS ALERT & ORIENTED X2 PLACE AND PERSON. PT HAS IV SITE ON L FA 18 GUAGE RUNNING NS @ 100ML/HR. 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 PT IS ON ROOM AIR. PT IS ACCUCHECK ACHS. PT DENIES PAIN, NAUSEA AND VOMITING. TOOK A PICTURE ON L BUTTOCK FOR DOCUMENTATION. PT AT THE BEDSIDE. PLACED CONDOM CATH DUE TO PT IS INCONTINENT AND INCREASED WEAKNESS AND LETHARGY. PT ON THE BED, BED ON THE LOWEST POSITION, SIDE RAILS UP, CALL LIGHT WITHIN REACH. WILL CONTINUE TO MONITOR PT. FOLLOW POC.
[2020-11-01] MEDS ORDERED: JARDIANCE25 MG PO (17:28)
[2020-11-02 04:42] VITALS: BP 130/58
[2020-11-02 05:24] LABS: MCH 28.5 pg (26.0-34.0); MCHC 33.3 g/dL (28.0-37.0); MCV 85.4 fL (80.0-100.0); RBC 4.21 mil/uL (4.50-6.00); RDW 14.6 % (10.5-14.5); WBC 14.5 thou/uL (4.0-11.0)
--- NOTE | 2020-11-02 05:25 | NUR ---
RECEIED CARE OF THIS PATIENT AT 1900. PATIENT ALERT AND ORIENTED TO PERSON AND PLACE ONLY. ACCHCHECK WAS 153, 3UNITS LISPRO INSULIN GIVEN. HAS EXTERNAL CATH. REMAINS ON BEDREST. DENIES PAIN. SLEPT MOST OF NIGHT.
[2020-11-02 05:51] LABS: CALCIUM 8.4 mg/dL (8.5-10.1); CREATININE 1.1 mg/dL (0.7-1.3); POTASSIUM 3.4 mmol/L (3.5-5.1)
[2020-11-02 07:45] VITALS: BP 125/61
[2020-11-02 15:25] VITALS: BP 119/59
--- NOTE | 2020-11-02 20:26 | NUR ---
Patient alert and orinted to person/place, on room air, incontintent of bowel and bladder, external cath placed, up x1 assist with walker and gait belt, spouse at bedside throughout the day, vitals stable, and afbreile. Bed/chair alarm on, call light with in reach, will continue to monitor.
[2020-11-02 20:50] VITALS: BP 157/75
--- NOTE | 2020-11-03 02:58 | NUR ---
ASSUMED CARE AT 1900. PT IS A/O X2 AND IS UP WITH ASSISTANCE X1-2. PT IS UNSTEADY ON HIS FEET AND LEANS BACKWARDS WHILE STANDING. ROOM AIR. VSS AFEBRILE. MEDICATIONS GIVEN PER MAR. DENIES C/O PAIN OR DISCOMFORT. HAS NOT SLEPT MUCH THIS NOC DESPITE SCHEDULED SLEEP MEDICATION GIVEN DIRECTED. EXTERNAL MALE CATHETER IN PLACE DRAINING APPROPRIATELY. NO BM THIS SHIFT. FALL PRECAUTIONS IN PLACE, CALL LIGHT IS WITHIN REACH. WILL CONTINUE TO MONITOR.
[2020-11-03 03:15] VITALS: BP 134/68
[2020-11-03 05:12] LABS: HEMATOCRIT 33.3 % (42.0-52.0); HEMOGLOBIN 11.1 gm/dL (14.0-18.0); MCH 28.5 pg (26.0-34.0); MCHC 33.4 g/dL (28.0-37.0); MCV 85.3 fL (80.0-100.0); RBC 3.9 mil/uL (4.50-6.00); RDW 14.5 % (10.5-14.5); WBC 12.1 thou/uL (4.0-11.0)
[2020-11-03 05:23] LABS: CALCIUM 7.8 mg/dL (8.5-10.1); CREATININE 1.1 mg/dL (0.7-1.3); POTASSIUM 3.1 mmol/L (3.5-5.1)
[2020-11-03 07:15] VITALS: BP 135/70
[2020-11-03 15:30] VITALS: BP 120/57
[2020-11-03 19:27] VITALS: BP 134/59
--- NOTE | 2020-11-04 03:02 | NUR ---
ASSESSED AT START OF SHIFT. PT RESTING IN BED. EVENING MEDS GIVEN AND PT BHAVESH IT WELL. BSG CHECKED NO INSULIN PROVIDED. CONDOM CATH INTACT AND DRAINIG. PT CALLED UNIT AND THIS NURSE UPDATED ON PROGRESS. FALL PREC IN PLACE AND CALL LIGHT AT REACH. NO FURTHER SIGNS OF DISCOMFORT WILL CONT TO MONITOR.
[2020-11-04 04:14] VITALS: BP 137/74
[2020-11-04 05:49] LABS: HEMATOCRIT 33.1 % (42.0-52.0); MCH 28.4 pg (26.0-34.0); MCHC 33.1 g/dL (28.0-37.0); MCV 85.7 fL (80.0-100.0); RBC 3.86 mil/uL (4.50-6.00); RDW 14.7 % (10.5-14.5); WBC 6.3 thou/uL (4.0-11.0)
[2020-11-04 05:54] LABS: CALCIUM 7.6 mg/dL (8.5-10.1); POTASSIUM 3.1 mmol/L (3.5-5.1)
[2020-11-04 07:45] VITALS: BP 143/67
--- NOTE | 2020-11-04 11:16 | NUR ---
ASSUMED CARE OF PT AT 0700 THIS MORNING. PT WAS ADMITTED FOR LETHARGY AND UTI. PT HAS BEEN GIVEN ABX AND IS LOOKING TO BE XFERRED TO [facility] FOR REHAB. PT IS A/OX3, LUNGS ARE CLEAR. CR<3SECX4, SKIN INTACT W/ NO TENTING, DISTAL PULSES STRONG WITH = TREE FELLER. ASSESSMENTS CHARTED AND OTHERWISE UNREMARKABLE. IV IN LEFT FA SL. CALL LIGHT AND OTHER NEEDS ARE PLACED WITHIN REACH. MEDS AND TX GIVEN NEEDED AND SCHEDULED.
--- NOTE | 2020-11-04 11:38 | NUR ---
INITIAL ASSESSMENT: SW reviewed chart and spoke with nursing and attending physician. Pt was admitted from home due to UTI/weakness. Pt with hx of recent falls. Recommendation made for pt to go to post-acute care. SW met with pt and at bedside. Introduced role of SW. Pt was tired during SW visit. Pt's provided info for assessment. Pt and live at home. 8 steps to enter the back door. 1 step through the garage. No steps inside the home. Pt has both a cane and walker to use if needed. Pt has been to in May of 2019. Pt had [facility] after discharge from . Pt's PCP is Dr. Sam Price. SW discussed discharge plan for post-acute placement. Pt and are both agreeable with . Pt is in [facility] program. SW provided [facility] list of in-network providers for review. Pt and would like a SNF referral to be sent to [facility] for review. Awaiting input from . MEGHNA faxed referral to [facility] and notified admissions liaison of new referral. MEGHNA is following to assist as needed with discharge planning.
--- NOTE | 2020-11-04 15:21 | NUR ---
PATIENT SEEN BY NURSE PRACTIONER FOR DR. HUNTER THIS DATE AND IS A CANDIDATE FOR ACUTE REHAB. PLUCK SEPARATOR REPORTS PATIENT WITH NAUSEA THIS DATE. WILL PLAN FOR ADMISSSION 11/05/20 IS MEDICALLY STABLE. SOICAL WORKER INFORMED. THANK YOU FOR THIS REFERRAL.
--- NOTE | 2020-11-04 15:50 | NUR ---
RN agrees with FIELD CROP HARVEST CONTRACTOR assessment.
[2020-11-04 16:45] VITALS: BP 144/69
[2020-11-04 20:01] VITALS: BP 137/72
--- NOTE | 2020-11-05 04:07 | NUR ---
RECEIVED CARE OF THIS PATIENT AT 1900. PATIENT ALERT AND ORIENTED X4. ACCUCHECK WAS 318, 9 UNITS LISPRO INSULIN GIVEN. DENIES PAIN. SLEPT MOST OF NIGHT.
[2020-11-05 07:55] VITALS: BP 156/69
[2020-11-05] MEDS ORDERED: FLOMAX0.4 MG PO (08:50)
[2020-11-05] MEDS ORDERED: GLIMEPIRIDE1 MG PO (08:51)
[2020-11-05] MEDS ORDERED: AMARYL2 MG PO (08:51)
[2020-11-05] MEDS ORDERED: CEPHALEXIN500 MG PO (08:52)
[2020-11-05 09:56] VITALS: BP 156/69
--- NOTE | 2020-11-05 11:33 | NUR ---
ASSUMED CARE OF PT AT 0700 THIS MORNING. ONGOING ASSESSMENTS FROM YESTERDAY, NO CHANGE AND OTHERWISE UNREMARKABLE. SKIN INTACT WITH STAGE 1 RED SORE BELOW COCCYX AREA AND TX WITH BARRIER CREAM AND Z-[place]. PT IS BEING XFERRED TO REHAB ON 5[facility]. PT'S SIGNED DISCHARGE PAPERWORK AND EDUCATION MATERIAL WAS GIVEN. REPORT GIVEN TO SALVATORE LOBO. PT XFERED AT 1135.
--- NOTE | 2020-11-05 12:00 | NUR ---
ON-GOING ASSESSMENT: PT HAS BEEN ACCEPTED TO [facility] AND PLANS ON D/C THERE TODAY. PT HAS NO NEEDS FROM CM. [facility] STATING THEY CAN ACCEPT TODAY. BEDSIDE RN HAS THE NUMBER FOR REPORT.
[2020-11-15] MEDS ORDERED: COLACE 100 MG100 MG PO (12:45)
[2020-11-15] MEDS ORDERED: FOLIC ACID1 MG PO (12:45)
[2020-11-15] MEDS ORDERED: LIDOPATCH1 EACH TRANSDERM (12:45)
[2020-11-15] MEDS ORDERED: ACETAMINOPHEN325 M1 PO (12:45)
[2020-11-15] MEDS ORDERED: MELATONIN5 M1 PO (12:45)
[2020-11-15] MEDS ORDERED: B-12500 MCG PO (12:45)
[2020-11-15] MEDS ORDERED: FLOMAX0.4 MG PO (13:16)
== END 2020-11-05 11:44 | DRG 871 ==
LOC: ER 05:54 → EROBS 10:05 → 4S 10:05
PROVIDERS: Emergency Medicine; ADMIT Hospitalist; ATTEND Hospitalist
DX: A41.9 Sepsis, unspecified organism (principal); G93.41 Metabolic encephalopathy; N30.01 Acute cystitis with hematuria; N17.9 Acute kidney failure, unspecified; G93.40 Encephalopathy, unspecified; I10 Essential (primary) hypertension; E11.9 Type 2 diabetes mellitus without complications; L89.329 Pressure ulcer of left buttock, unspecified stage; E78.5 Hyperlipidemia, unspecified; R53.81 Other malaise; N40.1 Benign prostatic hyperplasia with lower urinary tract symptoms; Z20.822 Contact with and (suspected) exposure to COVID-19; R63.4 Abnormal weight loss; Z68.20 Body mass index [BMI] 20.0-20.9, adult; Z79.82 Long term (current) use of aspirin; Z86.73 Personal history of transient ischemic attack (TIA), and cerebral infarction without residual deficits; Z79.4 Long term (current) use of insulin; Z87.891 Personal history of nicotine dependence; Z79.899 Other long term (current) drug therapy
CPT/HCPCS: 10195

== ENCOUNTER → 2020-12-26 | Outpatient (CLI) | payer OTHER, BC ==
[~2020-12-26] MED LIST changes: +ACETAMINOPHEN325 M1 PO; +ASA81BEC PO; +B-12500 MCG PO; +CEPHALEXIN500 MG PO; +COLACE 100 MG100 MG PO; +FLOMAX0.4 MG PO; +FOLIC ACID1 MG PO; +JARDIANCE25 MG PO; +LIDOPATCH1 EACH TRANSDERM; +MELATONIN5 M1 PO
== END ==
LOC: RAD 11:11
PROVIDERS: ATTEND Internal Medicine
DX: S22.41XA Multiple fractures of ribs, right side, initial encounter for closed fracture (principal); X58.XXXA Exposure to other specified factors, initial encounter; Y93.89 Activity, other specified; Y92.89 Other specified places as the place of occurrence of the external cause; Y99.8 Other external cause status